=== PATIENT | male | born 1975 | race Caucasian/White ===

== ENCOUNTER 2023-03-25 10:35 | Outpatient (REF) | payer OTHER, SELFPAY ==
[2023-03-25 14:21] LABS: Alanine Aminotransferase 23 U/L (0-40); Albumin Level 4.3 g/dL (3.5-5.0); Alkaline Phosphatase 79 U/L (39-117); Anion Gap 11 (12-20); Aspartate Amino Transferase 19 U/L (5-37); Bilirubin Total 1.2 mg/dL (0.0-1.0); Blood Urea Nitrogen 14 mg/dL (9-16); Calcium 9.4 mg/dL (8.4-10.2); Carbon Dioxide 27 mmol/L (22-29); Chloride 103 mmol/L (96-108); Estimated Glomerular Filt Rate > 60; Glucose Random 199 mg/dL (60-115); Potassium 3.7 mmol/L (3.3-5.1); Sodium 137 mmol/L (135-145); Total Protein 6.9 g/dL (6.5-8.0)
[2023-03-28 14:59] LABS: Calcium (PTHI) 9.4 mg/dL (8.6-10.3); PTHI 20 pg/mL (16-77)
== END 2023-03-25 10:36 | disposition home or self-care (01) ==
LOC: HO.HHCL 10:35
PROVIDERS: Visit Provider Registered Nurse
DX: E11.65 Type 2 diabetes mellitus with hyperglycemia (principal); Z79.4 Long term (current) use of insulin; R79.89 Other specified abnormal findings of blood chemistry
CPT/HCPCS: 36415; 80053; 83970

== ENCOUNTER 2023-07-20 15:09 | Outpatient (REF) | payer MEDICAID, SELFPAY ==
[2023-07-23 00:54] LABS: TS Negative Control Passed; TS Panel A 1; TS Panel B 0; TS Positive Control Passed; TSpotTB Negative (Negative)
== END 2023-07-20 15:10 | disposition home or self-care (01) ==
LOC: HO.HHCL 15:09
PROVIDERS: Visit Provider Student in an Organized Health Care Education/Training Program
DX: Z11.1 Encounter for screening for respiratory tuberculosis (principal)
CPT/HCPCS: 36415; 86481

== ENCOUNTER 2023-09-02 08:49 | Outpatient (REF) | payer SELFPAY ==
[2023-09-02 11:48] LABS: Hematocrit 46.6 % (42.0-52.0); Hemoglobin 16.1 g/dl (14.0-18.0); Mean Corpuscular HGB Conc 34.5 g/dl (31.0-36.0); Mean Corpuscular Hemoglobin 30.3 pg (27.0-33.0); Mean Corpuscular Volume 87.6 fL (80.0-98.0); Mean Platelet Volume 10.6 fL (9.4-12.4); Platelet Count 242 X10*3/uL (160-400); Red Blood Count 5.32 X10*6/uL (4.60-5.80); Red Cell Distribution Width 11.9 % (11.0-16.0); White Blood Count 7.1 X10*3/uL (4.8-10.8)
[2023-09-02 11:59] LABS: Estimated Average Glucose 200 mg/dL; Hemoglobin A1c % 8.6 % (<6.0)
[2023-09-02 12:13] LABS: Alanine Aminotransferase 19 U/L (0-40); Albumin Level 4.5 g/dL (3.5-5.0); Alkaline Phosphatase 72 U/L (39-117); Anion Gap 14 (12-20); Aspartate Amino Transferase 16 U/L (5-37); Bilirubin Total 1.2 mg/dL (0.0-1.0); Blood Urea Nitrogen 14 mg/dL (9-16); Calcium 9.7 mg/dL (8.4-10.2); Carbon Dioxide 25 mmol/L (22-29); Chloride 102 mmol/L (96-108); Cholesterol 111 mg/dL (<200); Estimated Glomerular Filt Rate > 60; Glucose Random 249 mg/dL (60-115); HDL Cholesterol 42 mg/dL (>40); LDL Cholesterol Calculated 51 mg/dL (<100); Potassium 4.1 mmol/L (3.3-5.1); Sodium 137 mmol/L (135-145); Total Protein 7.2 g/dL (6.5-8.0); Triglycerides 93 mg/dL (<150)
[2023-09-02 12:16] LABS: Syphilis Screen Nonreactive (Nonreactive)
[2023-09-02 12:19] LABS: HBS Num1 0.32 mIU/mL (0-7.99); HBc Num1 0.11 S/CO (0.00-0.79); HBsAGNum1 0.36 S/CO (0.00-0.99); HIV AB/AG Nonreactive (Nonreactive); HIV Num 1 0.04 S/CO (0.00-0.99); Hepatitis B Core Antibody Nonreactive (Nonreactive); Hepatitis B Surface Antigen Negative (Negative); ~HepC Num1 0.14 S/CO (0.00-0.79); ~Hepatitis B Surface Antibody NONREACTIVE (Nonreactive); ~Hepatitis C Antibody Nonreactive (Nonreactive)
[2023-09-02 12:23] LABS: TSH reflex Free T4 1.09 uIU/mL (0.32-4.0); Vitamin D 25-OH Total 32.7 ng/mL (>30)
[2023-09-02 12:35] LABS: Folate 13.2 ng/mL (> or = 4.0)
[2023-09-02 12:42] LABS: Vitamin B12 530 pg/mL (200-900)
[2023-09-02 12:44] LABS: Creatinine Urine 145.78 mg/dL
[2023-09-02 14:56] LABS: CT PCR NOT DETECTED (Not Detect.); NG PCR NOT DETECTED (Not Detect.)
== END 2023-09-02 08:50 | disposition home or self-care (01) ==
LOC: HO.HHCL 08:49
PROVIDERS: Visit Provider Student in an Organized Health Care Education/Training Program
DX: Z00.00 Encounter for general adult medical examination without abnormal findings (principal); Z11.59 Encounter for screening for other viral diseases; Z20.2 Contact with and (suspected) exposure to infections with a predominantly sexual mode of transmission; Z72.89 Other problems related to lifestyle
CPT/HCPCS: 0353U; 36415; 80053; 80061; 82043; 82306; 82570; 82607; 82746; 83036; 84443; 85027; 86704; 86706; 86780; 86803; 87340; 87389

== ENCOUNTER 2023-09-19 18:39 | Emergency (ER) | payer OTHER, MEDICARE, SELFPAY ==
--- NOTE | 2023-09-19 18:41 | ECG_ITS ---
Test Reason : CHEST PAIN Blood Pressure : / mmHG Vent. Rate : 091 BPM Atrial Rate : 091 BPM P-R Int : 164 ms QRS Dur : 096 ms QT Int : 340 ms P-R-T Axes : 050 -13 028 degrees QTc Int : 418 ms Normal sinus rhythm Normal ECG When compared with ECG of 27-OCT-2019 21:01, No significant change was found Referred By: Trina Swain Electronically Signed By:NOAH GODINEZ
--- NOTE | 2023-09-19 19:48 | ED.GENADULT ---
HPI - General Adult General Chief complaint: Abdominal Pain Stated complaint: chest pain Time Seen by Provider: 09/20/23 01:38 Source: patient Mode of arrival: ambulatory Limitations: no limitations History of Present Illness HPI narrative: Patient comes to the emergency room complaining of abdominal cramping that radiated towards the left chest. Patient states it happened right after eating a bowl of cereal. At this time, patient is asymptomatic. Patient states that maybe he had a panic attack. Patient denies nausea vomiting or diarrhea, no shortness of breath. No chest pain at this time. Related Data Previous Rx's Medication Instructions Recorded omeprazole 40 mg capsule,delayed 40 mg PO DAILY #30 caps 09/20/23 release Allergies Allergy/AdvReac Type Severity Reaction Status Date / Time ibuprofen [From Motrin] Allergy Mild RASH Verified 09/19/23 19:48 losartan [Cozaar] Allergy Unknown Unknown Verified 09/19/23 19:48 Motrin Allergy Unknown Rash Uncoded 09/19/23 19:48 pork Allergy Unknown hives/rash Uncoded 10/29/19 00:00 Review of Systems Review of Systems: Constitutional : No Weight loss, No Fever, No Chills, No Night Sweats, No Fatigue, No Malaise ENT/Mouth : No Hearing loss, No Ear Pain, No Nasal Congestion, No Sinus Pain, No Hoarseness, No sore throat, No Rhinorrhea, No Swallowing Difficulty Eyes: No Eye Pain, No Swelling, No Redness, No Foreign Body, No Discharge, No Vision Changes Cardiovascular : No Chest Pain, No SOB, No Dyspnea on Exertion, No Orthopnea, No Edema, No Palpitations Respiratory : No Cough, No Sputum, No Wheezing, No Smoke Exposure, No Dyspnea Gastrointestinal : No Nausea, No Vomiting, No Diarrhea, No Constipation, complaining of abdominal cramping radiating towards the left side of the chest, no self resolved, patient asymptomatic at this time No Hematochezia, No Melena Genitourinary : no irregular bleeding, No Dysuria, No Urinary Frequency, No Hematuria, No Urinary Incontinence, No Urgency, No Flank Pain, No Urinary Flow Changes, No Hesitancy Musculoskeletal : No joint pain, No Myalgias, No Joint Swelling Skin : No Skin Lesions, No rash Neuro : No Weakness, No Numbness, No Paresthesias, No Loss of Consciousness, No Dizziness, No Headache Psych : No Anxiety/Panic, No Depression, No SI/HI/AH/VH, No Social Issues, Heme/Lymph: No Bruising, No Bleeding,No Lymphadenopathy Endocrine : No Polyuria, No Polydipsia, No Temperature Intolerance [facility] Past Medical History Onset Date is defined in the Problem List Problems that require an onset date and time if occurred within 24 hrs of arrival to the ED Aortic Dissection and Rupture; Neurologic impairment; Cardiopulmonary Arrest; Endotracheal Intubation; Insertion or Replacement of Mechanical Circulatory Assist Device Medical History Chronic, continuous use of opioids Dyslipidemia HTN (hypertension) Diabetes mellitus, type II Obesity Asthma Backache Anxiety Depression Pure hypercholesterolemia Social History Social History Smoked in Last 30 Days: No Use of substances other than those prescribed or required for medical reasons: No Advance Directives: No Advance Directives Information Provided: Yes Physical Exam ED Vital Signs: Vital Signs - 24 hr 09/19/23 19:49 09/19/23 23:41 09/20/23 01:20 Temperature 97.6 F 98.1 F 97.8 F Pulse Rate 79 63 57 Respiratory Rate 16 16 17 Blood Pressure 153/80 H 155/82 H 155/78 H Pulse Oximetry 98 98 99 Oxygen Delivery Method Room Air Room Air Room Air BMI result Body Mass Index 29.5 Const Other: Appearance: Alert. Oriented X3. No acute distress. Eyes: Pupils equal, round and reactive to light. ENT: Pharynx normal. Neck: Normal inspection. Neck supple. No lymph nodes noted. No crepitus CVS: Normal heart rate and rhythm. Pulses normal. Normal S1 and S2 Respiratory: No respiratory distress. Breath sounds normal. No Wheezing. No rales Abdomen: Soft and nontender. No rigidity. No distention. Skin: Skin warm and dry. Normal skin color. Normal skin turgor. Extremities: No lower extremity edema. No Lacerations. No Rash Neuro: Oriented X 3. No motor deficit. No sensory deficit. Moving all extremities. No slurred speech. CN 2 through 12 grossly intact Psych: calm, cooperative, normal affect Course Course Course Narrative: RME:?47 yo male here with epigastric pain/cramping with radiation to left chest directly after eating a bowel of cereal. 10 at onset, now 03/14. he began to feel anxious and reports numbness/tingling down his LUE which lasted approx 30 minutes before completely resolving. at present still reports epigastric cramping. Was seen at walk-in last week prescribed omeprazole. hx of anxiety, states this felt similar. plan for basic labs, trop, ekg Full HPI, ROS and PE to be performed by the primary ED provider. Medical Decision Making Medical Decision Making [facility] Narrative: -my interpretation of EKG: Normal sinus rhythm, heart rate 91, no ST segment depression or elevation, no T-wave inversion, QTC 418 -my interpretation of labs: Hematology and chemistry, blood glucose 290, patient known to be diabetic, LFTs troponin lipase within normal limits -patient likely had viral syndrome versus, anxiety versus ACS versus GERD -patient states he has an appointment pending with his PCP for GERD follow-up in 2 weeks Differential Diagnosis Differential Diagnoses: The differential diagnosis associated with the presentation includes (As above) Admission/Observation Consideration of admission/observation: Escalation of care including admission/observation considered (Given patient's history, admission was considered on arrival) Lab Data [facility] Lab Attestation statement: I reviewed the patient's lab results. 09/19/23 21:05 09/19/23 21:05 Labs: Lab Results 09/19/23 09/20/23 Range/Units 21:05 01:28 WBC 8.8 (4.8-10.8) X10*3/uL RBC 5.43 (4.60-5.80) X10*6/uL Hgb 16.1 (14.0-18.0) g/dl Hct 46.4 (42.0-52.0) % MCV 85.5 (80.0-98.0) fL MCH 29.7 (27.0-33.0) pg MCHC 34.7 (31.0-36.0) g/dl RDW 11.9 (11.0-16.0) % Plt Count 243 (160-400) X10*3/uL MPV 9.5 (9.4-12.4) fL Immature Gran % (Auto) 0.2 (0.0-0.4) % Neut % (Auto) 69.4 (45-73) % Lymph % (Auto) 19.7 L (20-40) % [place] % (Auto) 8.1 (2-11) % Eos % (Auto) 2.3 (0-4) % Baso % (Auto) 0.3 (0-2) % Lymph # (Auto) 1.7 (1.2-4.9) X10*3/uL [place] # (Auto) 0.7 (0.1-1.2) X10*3/uL Eos # (Auto) 0.2 (0.0-0.4) X10*3/uL Baso # (Auto) 0.0 (0.0-0.2) X10*3/uL Abs Immat Gran (auto) 0.02 (0.00-0.03) X10*3/uL Absolute Neuts (auto) 6.1 (2.0-8.3) x10*3/uL Absolute Nucleated RBC 0.000 (0.0-0.012) X10*3/uL Nucleated RBC % (auto) 0.0 (0.0-0.2) /100WBC Sodium 137 (135-145) mmol/L Potassium 4.0 (3.3-5.1) mmol/L Chloride 104 (96-108) mmol/L Carbon Dioxide 25 (22-29) mmol/L Anion Gap 12 (12-20) BUN 18 H (9-16) mg/dL Creatinine 1.40 (0.5-1.4) mg/dL Estim Creat Clear Calc 71.8 Estimated GFR 55 POC Glucose 160 H (60-115) mg/dL Random Glucose 290 H (60-115) mg/dL Calcium 9.8 (8.4-10.2) mg/dL Magnesium 1.8 (1.6-2.6) mg/dL Total Bilirubin 0.6 (0.0-1.0) mg/dL AST 13 (5-37) U/L ALT 18 (0-40) U/L Alkaline Phosphatase 95 (39-117) U/L Troponin I High Sens < 2.7 (<3.5-35.0) ng/L Total Protein 7.3 (6.5-8.0) g/dL Albumin 4.5 (3.5-5.0) g/dL Lipase 53 (8-78) U/L Independent Interpretation I performed an independent interpretation of an: EKG Critical Care Time Critical Care Time Critical Care Time: Yes Total Critical Care Time: 30 Attestation: I have personally provided critical care time. Time includes review of lab data, radiology results, discussion with consultants, and monitoring for potential decompensation. Intervention performed as documented. Discharge Plan Discharge Clinical Impression: Atypical chest pain, Abdominal cramping, Anxiety Patient Disposition: Home, Self-Care Instructions: Chest Pain (ED), Abdominal Pain (ED), Anxiety (ED) Additional Instructions: Please follow-up with your primary care physician tomorrow. If you have any worsening or new symptoms, please return to the emergency room or call 911 Prescriptions: New omeprazole 40 mg capsule,delayed release(DR/EC) 40 mg PO DAILY Qty: 30 0RF
[2023-09-19 19:49] VITALS: BP 153/80; PULSE 79; RESP 16; TEMP 36.4; O2SAT 98; BMI 29.5
[2023-09-19 21:11] LABS: MANUAL DIFF FLAG NO
[2023-09-19 21:14] LABS: Basophils Percent Auto 0.3 % (0-2); Eosinophils Absolute Auto 0.2 X10*3/uL (0.0-0.4); Eosinophils Percent Auto 2.3 % (0-4); Hematocrit 46.4 % (42.0-52.0); Hemoglobin 16.1 g/dl (14.0-18.0); Imm Gran Abs Auto 0.02 X10*3/uL (0.00-0.03); Imm Gran Pct Auto 0.2 % (0.0-0.4); Lymphocytes Absolute Auto 1.7 X10*3/uL (1.2-4.9); Lymphocytes Percent Auto 19.7 % (20-40); Mean Corpuscular HGB Conc 34.7 g/dl (31.0-36.0); Mean Corpuscular Hemoglobin 29.7 pg (27.0-33.0); Mean Corpuscular Volume 85.5 fL (80.0-98.0); Mean Platelet Volume 9.5 fL (9.4-12.4); Monocytes Absolute Auto 0.7 X10*3/uL (0.1-1.2); Monocytes Percent Auto 8.1 % (2-11); Neutrophils Absolute Auto 6.1 x10*3/uL (2.0-8.3); Neutrophils Percent Auto 69.4 % (45-73); Platelet Count 243 X10*3/uL (160-400); Red Blood Count 5.43 X10*6/uL (4.60-5.80); Red Cell Distribution Width 11.9 % (11.0-16.0); White Blood Count 8.8 X10*3/uL (4.8-10.8)
[2023-09-19 21:25] LABS: Alanine Aminotransferase 18 U/L (0-40); Albumin Level 4.5 g/dL (3.5-5.0); Alkaline Phosphatase 95 U/L (39-117); Anion Gap 12 (12-20); Aspartate Amino Transferase 13 U/L (5-37); Bilirubin Total 0.6 mg/dL (0.0-1.0); Blood Urea Nitrogen 18 mg/dL (9-16); Calcium 9.8 mg/dL (8.4-10.2); Carbon Dioxide 25 mmol/L (22-29); Chloride 104 mmol/L (96-108); Creatinine Clr Calc Pharmacy 71.8; Estimated Glomerular Filt Rate 55; Glucose Random 290 mg/dL (60-115); Lipase 53 U/L (8-78); Magnesium 1.8 mg/dL (1.6-2.6); Sodium 137 mmol/L (135-145); Total Protein 7.3 g/dL (6.5-8.0)
[2023-09-19 21:32] LABS: Troponin-I High Sensitivity < 2.7 ng/L (<3.5-35.0)
[2023-09-19 23:41] VITALS: BP 155/82; PULSE 63; RESP 16; TEMP 36.7; O2SAT 98
[2023-09-20 01:20] VITALS: BP 155/78; PULSE 57; RESP 17; TEMP 36.6; O2SAT 99
[2023-09-20 01:36] LABS: Glucose, Whole Blood 160 mg/dL (60-115)
--- NOTE | 2023-09-20 01:46 | ED_ITS ---
HPI - General Adult General Chief complaint: Abdominal Pain Stated complaint: chest pain Time Seen by Provider: 09/20/23 01:38 Source: patient Mode of arrival: ambulatory Limitations: no limitations Related Data Allergies Allergy/AdvReac Type Severity Reaction Status Date / Time ibuprofen [From Motrin] Allergy Mild RASH Verified 09/19/23 19:48 losartan [Cozaar] Allergy Unknown Unknown Verified 09/19/23 19:48 Motrin Allergy Unknown Rash Uncoded 09/19/23 19:48 pork Allergy Unknown hives/rash Uncoded 10/29/19 00:00 PMFSH Past Medical History Onset Date is defined in the Problem List Problems that require an onset date and time if occurred within 24 hrs of arrival to the ED Aortic Dissection and Rupture; Neurologic impairment; Cardiopulmonary Arrest; Endotracheal Intubation; Insertion or Replacement of Mechanical Circulatory Assist Device Medical History (Updated 10/18/22 @ 09:22 by MIRTA Viramontes) Chronic, continuous use of opioids Dyslipidemia HTN (hypertension) Diabetes mellitus, type II Obesity Asthma Backache Anxiety Depression Pure hypercholesterolemia Social History Social History Smoked in Last 30 Days: No Use of substances other than those prescribed or required for medical reasons: No Advance Directives: No Advance Directives Information Provided: Yes Physical Exam ED Vital Signs: Vital Signs - 24 hr 09/19/23 19:49 09/19/23 23:41 09/20/23 01:20 Temperature 97.6 F 98.1 F 97.8 F Pulse Rate 79 63 57 Respiratory Rate 16 16 17 Blood Pressure 153/80 H 155/82 H 155/78 H Pulse Oximetry 98 98 99 Oxygen Delivery Method Room Air Room Air Room Air BMI result Body Mass Index 29.5 Medical Decision Making Lab Data 09/19/23 21:05 09/19/23 21:05 Labs: Lab Results 09/19/23 09/20/23 Range/Units 21:05 01:28 WBC 8.8 (4.8-10.8) X10*3/uL RBC 5.43 (4.60-5.80) X10*6/uL Hgb 16.1 (14.0-18.0) g/dl Hct 46.4 (42.0-52.0) % MCV 85.5 (80.0-98.0) fL MCH 29.7 (27.0-33.0) pg MCHC 34.7 (31.0-36.0) g/dl RDW 11.9 (11.0-16.0) % Plt Count 243 (160-400) X10*3/uL MPV 9.5 (9.4-12.4) fL Immature Gran % (Auto) 0.2 (0.0-0.4) % Neut % (Auto) 69.4 (45-73) % Lymph % (Auto) 19.7 L (20-40) % [place] % (Auto) 8.1 (2-11) % Eos % (Auto) 2.3 (0-4) % Baso % (Auto) 0.3 (0-2) % Lymph # (Auto) 1.7 (1.2-4.9) X10*3/uL [place] # (Auto) 0.7 (0.1-1.2) X10*3/uL Eos # (Auto) 0.2 (0.0-0.4) X10*3/uL Baso # (Auto) 0.0 (0.0-0.2) X10*3/uL Abs Immat Gran (auto) 0.02 (0.00-0.03) X10*3/uL Absolute Neuts (auto) 6.1 (2.0-8.3) x10*3/uL Absolute Nucleated RBC 0.000 (0.0-0.012) X10*3/uL Nucleated RBC % (auto) 0.0 (0.0-0.2) /100WBC Sodium 137 (135-145) mmol/L Potassium 4.0 (3.3-5.1) mmol/L Chloride 104 (96-108) mmol/L Carbon Dioxide 25 (22-29) mmol/L Anion Gap 12 (12-20) BUN 18 H (9-16) mg/dL Creatinine 1.40 (0.5-1.4) mg/dL Estim Creat Clear Calc 71.8 Estimated GFR 55 POC Glucose 160 H (60-115) mg/dL Random Glucose 290 H (60-115) mg/dL Calcium 9.8 (8.4-10.2) mg/dL Magnesium 1.8 (1.6-2.6) mg/dL Total Bilirubin 0.6 (0.0-1.0) mg/dL AST 13 (5-37) U/L ALT 18 (0-40) U/L Alkaline Phosphatase 95 (39-117) U/L Troponin I High Sens < 2.7 (<3.5-35.0) ng/L Total Protein 7.3 (6.5-8.0) g/dL Albumin 4.5 (3.5-5.0) g/dL Lipase 53 (8-78) U/L
[2023-09-20 02:22] LABS: Troponin-I High Sensitivity < 2.7 ng/L (<3.5-35.0)
== END 2023-09-20 02:05 | disposition home or self-care (01) ==
PROVIDERS: Physician Assistant Medical; Emergency Provider Emergency Medicine
DX: R07.89 Other chest pain (principal); R10.9 Unspecified abdominal pain; F41.9 Anxiety disorder, unspecified; E11.9 Type 2 diabetes mellitus without complications; I10 Essential (primary) hypertension; E78.00 Pure hypercholesterolemia, unspecified
CPT/HCPCS: 36415; 80053; 82947; 83690; 83735; 84484; 85025; 93005; 99283; 99285

== ENCOUNTER → 2023-09-19 18:41 | Outpatient (BNV) | payer OTHER, MEDICARE, SELFPAY | PROVIDERS: Emergency Provider Emergency Medicine; Visit Provider Internal Medicine | DX: R07.9 Chest pain, unspecified (principal) | CPT/HCPCS: 93010 ==

== ENCOUNTER 2023-10-19 07:19 | Outpatient (REF) | payer MEDICARE, SELFPAY ==
--- NOTE | ~2023-10-19 | US_ITS ---
EXAMINATION: US ABDOMEN COMPLETE CLINICAL INFORMATION: Epigastric/abdominal pain. COMPARISON: CT abdomen and pelvis 03/22/2018. Renal ultrasound 03/04/2016. TECHNIQUE: Real-time imaging of the abdominal viscera. Limited visualization due to bowel gas. FINDINGS: PANCREAS: Poorly visualized. ABDOMINAL AORTA: Limited visualization. INFERIOR VENA CAVA: Visualized portions are normal. LIVER: Increased hepatic parenchymal heterogeneity and echogenicity could be associated with hepatocellular disease/hepatic steatosis and substantially limits visualization. Correlation with liver function tests and clinical exam recommended to determine further management. GALLBLADDER: No gallstones. No gallbladder wall thickening. COMMON BILE DUCT: Normal in caliber measuring 0.4 cm in diameter. RIGHT KIDNEY: No hydronephrosis. No renal calculi. Limited visualization. The kidney measures 9.1 cm in maximum dimension. LEFT KIDNEY: No hydronephrosis. No renal calculi. Limited visualization. The kidney measures 12.9 cm in maximum dimension. SPLEEN: Borderline enlarged. The spleen measures 12.2 cm in maximum dimension. FREE FLUID: None. US/US abdomen complete IMPRESSION: 1. Increased hepatic parenchymal heterogeneity and echogenicity could be associated with hepatocellular disease/hepatic steatosis and substantially limits visualization. Correlation with liver function tests and clinical exam recommended to determine further management. 2. Borderline splenomegaly.
== END 2023-10-19 07:20 | disposition home or self-care (01) ==
LOC: HO.US 07:19
PROVIDERS: PCP Student in an Organized Health Care Education/Training Program; Visit Provider Student in an Organized Health Care Education/Training Program
DX: R10.13 Epigastric pain (principal)
CPT/HCPCS: 76700

== ENCOUNTER 2023-12-27 11:34 | Outpatient (REF) | payer OTHER, MEDICARE, MEDICAID, SELFPAY ==
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
== END 2023-12-27 11:35 | disposition home or self-care (01) ==
LOC: HO.HHCX 11:34
PROVIDERS: Visit Provider Internal Medicine
DX: M54.6 Pain in thoracic spine (principal)
CPT/HCPCS: 72070

== ENCOUNTER 2024-01-24 09:05 | Emergency (ER) | payer MEDICARE, MEDICAID, SELFPAY ==
--- NOTE | ~2024-01-24 | XR_ITS ---
EXAMINATION: XR KNEE, RIGHT CLINICAL INFORMATION: Worsening pain following fall/injury on Tuesday. COMPARISON: None available. TECHNIQUE: Four views of the right knee. FINDINGS: Large prepatellar effusion but no definite fracture or dislocation. Alignment is maintained. Patellar spurring. XR/XR knee RT 4V IMPRESSION: Large suprapatellar effusion.
--- NOTE | 2024-01-24 09:18 | PC.NURSE ---
Called for triage but currently at Xray.
[2024-01-24 09:25] VITALS: BP 142/63; PULSE 79; RESP 16; TEMP 37; O2SAT 99; BMI 29.2
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
--- OUTSIDE RECORDS SUMMARY | 2024-01-24 10:30 | XMS_ITS | Continuity of Care Document ---
Author Organization [facility] Address [address] [place] [address]- Care Team Providers Care Green Pipefitter Name Role Phone Matty ZIMMERMAN, Soco Dyson Primary Care Physician [phone] Encounter [facility] [place] Date(s): 05/05/21 - 07/24/21 [facility] [address] [place] [address]- Attending Physician: Juan J Luz MD Admitting Physician: Juan J Luz MD Referring Physician: Josué Yen NP Allergies, Adverse Reactions, Alerts Substance Reaction Severity Status Cozaar Active Motrin O/E - lip swelling Active Medications amLODIPine 5 mg oral tablet Refills 0, Maintenance, 07/16/21 7:53:00 EST, Partial fill upon patient request if the prescriptionis for a schedule II opioid drug. Start Date: 07/16/21 Status: Ordered atorvastatin 20 mg oral tablet 0 Refills, Maintenance, 07/16/21 7:53:00 EST, Partial fill upon patient request if the prescriptionis for a schedule II opioid drug. Start Date: 07/16/21 Status: Ordered Freestyle Anthony Monitor See Instructions, # 1 each, Refills 0, Tot. Refills 0, Maintenance, please use to scan your sensor 3-4x per day E11.9, 07/16/21 8:04:00 EST, FREESTYLE ANTHONY 2, Supply Start Date: 07/16/21 Status: Ordered Freestyle Anthony Monitor See Instructions, # 1 each, Refills 0, Tot. Refills 0, Maintenance, please use to scan sensor 3-4 times per day to check BG E11.9, 07/16/21 8:13:00 EST, FREESTYLE ANTHONY 2, Supply Start Date: 07/16/21 Status: Ordered Freestyle Anthony Sensor See Instructions, # 2 each, Refills 6, Tot. Refills 6, Maintenance, use as directed for Type 2 Diabetes Mellitus, replace sesnor every 14 days. check BG 3- 4 time s per day, 07/16/21 8:04:00 EST, FREESTYLE ANTHONY 2, Supply Start Date: 07/16/21 Stop Date: 02/11/22 Status: Ordered Freestyle Anthony Sensor See Instructions, # 2 each, Refills 6, Tot. Refills 6, Maintenance, use as directed for Type 2 Diabetes Mellitus, replace sesnor every 14 days. 3-4 times per day to check BG E11.9, 07/16/21 8:12:00 EST, FREESTYLE ANTHONY 2, Supply Start Date: 07/16/21 Stop Date: 02/11/22 Status: Ordered FREESTYLE JOSUE PRECISION TEST STRIPS FREESTYLE JOSUE PRECISION TEST STRIPS, See Instructions, # 200 each, Refills 6, Tot. Refills 6, Maintenance, PLEASE USE TO CHECK BG 3-4 TIMES PER DAY e11.9, 07/17/21 13:08:00 EST, Supply Start Date: 07/17/21 Status: Ordered Jardiance 25 mg oral tablet 0 Refills, Maintenance, 07/16/21 7:53:00 EST, Partial fill upon patient request if the prescriptionis for a schedule II opioid drug. Start Date: 07/16/21 Status: Ordered Lantus Solostar Pen 100 units/mL subcutaneous solution 0 Refills, Maintenance, 07/16/21 7:55:00 EST, Partial fill upon patient request if the prescriptionis for a schedule II opioid drug. Start Date: 07/16/21 Status: Ordered methimazole 5 mg oral tablet Refills 0, Maintenance, 07/16/21 7:54:00 EST, Partial fill upon patient request if the prescriptionis for a schedule II opioid drug. Start Date: 07/16/21 Status: Ordered NovoLOG FlexPen 100 units/mL subcutaneous solution 0 Refills, Maintenance, 07/16/21 7:55:00 EST, Partial fill upon patient request if the prescriptionis for a schedule II opioid drug. Start Date: 07/16/21 Status: Ordered oxyCODONE 5 mg oral tablet Refills 0, Tot. Refills 0, Maintenance, 07/16/21 7:54:00 EST, Partial fill upon patient request if the prescription is for a schedule II opioid drug. Start Date: 07/16/21 Status: Ordered
--- OUTSIDE RECORDS SUMMARY | 2024-01-24 10:30 | XMS_ITS | Continuity of Care Document ---
Author Organization [facility] Address [address] [place] [address]- Care Team Providers Care Telephone Assembler Name Role Phone Matty ZIMMERMAN, Soco Dyson Primary Care Physician Encounter [facility] [place] Date(s): 10/23/21 - 02/20/22 [facility] [address] [place] [address]- Attending Physician: Juan J Luz MD Admitting Physician: Juan J Luz MD Referring Physician: Soco Starr NP Allergies, Adverse Reactions, Alerts Substance Reaction [...]
--- OUTSIDE RECORDS SUMMARY | 2024-01-24 10:30 | XMS_ITS | Continuity of Care Document ---
Author Organization [facility] ter Address [address] [place] [address]- Care Team Providers Care Gradall Operator Name Role Phone Matty SALES SUPPORT SPECIALIST, Soco Dyson Primary Care Physician [phone] Encounter [facility] [place] Date(s): 04/23/22 - 04/23/[address] [address]- Encounter Diagnosis Chest pain(Final) - 04/23/22 Discharge Disposition: A-D/C Home Attending Physician: Mert Dennison MD Admitting Physician: Mert Dennison MD Referring Physician: Not on Staff, Referring MD Allergies, Adverse Reactions, Alerts Substance Reaction Severity [...] opioid drug. Start Date: 07/16/21 Status: Ordered FreeStyle Anthony 14 Day Sensor kit FreeStyle Anthony 14 Day Sensor kit, See Instructions, # 2 kit, 6 Refills, USE DIRECTED 3 TO 4 TIMES PER DAY. CHANGE EVERY 14 DAYS Start Date: 03/29/22 Status: Ordered Freestyle Anthony Monitor See Instructions, [...] opioid drug. Start Date: 07/16/21 Status: Ordered Results Radiology Reports * Exam Date Time Procedure Performing Provider Status 04/23/22 1:29 PM Chest 2 Views Frontal and Lat Evelyne Stearns; Auth (Verified) Notes: (Chest 2 Views Frontal and Lat) Reason For Exam: Chest Pain;Other: RESULT: Chest 2 Views Frontal and Lat Chest 2 Views Frontal and Lat Hx of Present Illness: pt states that I have problems breathing and I feel like my arm is numb, pt has been seeing PCP and state sthat he was getting evaluated for all of this but told by PCP to [facility] if it gets worse, states that he couldn't wait, has PCP appt at 1300; Reason: Other:; Chest Pain; Clinical Question(s): Other: COMPARISON: 12/11/2018 FINDINGS: LINES AND TUBES: None. LUNGS AND PLEURA: Clear lungs. Normal pulmonary vascularity. No pleural effusion. No pneumothorax. HEART, MEDIASTINUM AND ALISE: Heart is normal in size. Normal upper mediastinal and hilar contour. BONES AND SOFT TISSUES: No acute abnormality. IMPRESSION: No acute abnormality. WSN: [id number] Ordering Physician: Katy Desai Dictated By: Marika Johnson MD Dictated Date/Time: 04/23/22 1:32 pm Reviewed By: Markia Johnson MD Signed By: Marika Johnson MD Signed Date/Time: 04/23/22 1:32 pm Transcribed By: NELI Transcribed Date/Time: 04/23/22 1:31 pm Vital Signs Most recent to oldest [Reference Range]: 1 2 3 Height 173 cm (04/23/22 11:12 AM) Weight 90 kg (04/23/22 11:12 AM) Oxygen Saturation [94-100 %] 100 % (04/23/22 4:22 PM) 99 % (04/23/22 2:16 PM) 97 % (04/23/22 12:08 PM) Pulse Rate [55-90 bpm] 72 bpm (04/23/22 4:22 PM) 76 bpm (04/23/22 2:16 PM) 90 bpm (04/23/22 12:08 PM) Blood Pressure [90-138/55-84 mm Hg] 133/73mm Hg (04/23/22 4:22 PM) 132/84mm Hg (04/23/22 2:16 PM) 132/81mm Hg (04/23/22 12:08 PM) Respiratory Rate [16-30 br/min] 18 br/min (04/23/22 12:08 PM) Temperature [96.8-100.4 DegF] 97.4 DegF (04/23/22 4:22 PM) 97.6 DegF (04/23/22 2:16 PM) 98.6 DegF (04/23/22 12:08 PM) Mode of Delivery (Oxygen) Room air (04/23/22 4:22 PM) Room air (04/23/22 2:16 PM) Room air (04/23/22 12:08 PM) Blood pressure sites Arm, left (04/23/22 4:22 PM) Arm, left (04/23/22 2:16 PM) Arm, right (04/23/22 12:08 PM) Temperature Route Temporal (04/23/22 4:22 PM) Temporal (04/23/22 2:16 PM) Oral (04/23/22 12:08 PM) Dry Weight 90 kg (04/23/22 11:12 AM) Social History Social History Type Response Smoking Status Never (less than 100 in lifetime) entered on: 04/23/22 Sex
--- OUTSIDE RECORDS SUMMARY | 2024-01-24 10:30 | XMS_ITS | Continuity of Care Document ---
Author Organization [facility] Address [address] [place] [address]- Care Team Providers Care Garnetter Name Role Phone Matty ZIMMERMAN, Soco Dyson Primary Care Physician [place] [facility] [place] [facility] [place](s): 04/20/23 - 05/20/23 [facility] [address] [place] [address]- Attending Physician: Kevin Sandoval Admitting Physician: Kevin Sandoval Referring Physician: AdmtrKevin Allergies, Adverse Reactions, Alerts Substance Reaction Severity Status shellfish Active Cozaar Active Motrin O/E - lip swelling Active Pork Active Medications amLODIPine 5 mg oral tablet [...] See Instructions, # 2 kit, 6 Refills, Maintenance, USE DIRECTED THREE OR FOUR TIMES DAILY. CHANGE EVERY 14 DAYS, 10/11/22 9:59:00 EST, 172, cm, 10/06/22 8:04:00 EST, Height, 89, kg, 04/26/22 6:34:00 EDT, Dry Weight Start Date: 10/11/22 Status: Ordered FreeStyle Anthony 14 Day Sensor [...] opioid drug. Start Date: 07/16/21 Status: Ordered Levemir FlexPen 100 units/mL subcutaneous solution = 55 units, Subcutaneous Infusion, Daily at bedtime, Take 55 units daily at bedtime e11.9, # 45 mL,3 Refills, Maintenance, 04/20/23 11:44:00 EDT, [facility], Partial fill upon patient request if the prescription is for a schedule... Start Date: 04/20/23 Status: Ordered methimazole 5 mg oral tablet [...] opioid drug. Start Date: 07/16/21 Status: Ordered Problem List Condition Confirmation Course Effective Dates Status Health St atus Informant Obese class I Confirmed Active Social History Social History Type Response Smoking Status Never (less than 100 in lifetime) entered on: 04/23/22 Sex Laboratory * Event Display: Non BH Lab Results Authored Date: * Event Display: Non BH Lab Results Authored Date: * Event Display: Non BH Lab Results Authored Date: Patient Care team information Care Team Personnel Name: Tegan Shields Position: [facility] TA Member Role: Lifetime Consulting Physician Name: Soco Starr NP Position: [facility] Outreach Member Role: PCP Address: Address: [address] [place] [address]- Care Team Related Persons Name: LEE CAMPOS Address: [address] [address]
--- OUTSIDE RECORDS SUMMARY | 2024-01-24 10:30 | XMS_ITS | Continuity of Care Document ---
Author Organization [facility] Address [address] [place] [address]- Care Team Providers Care Block Machine Operator Name Role Phone Matty ZIMMERMAN, Soco Dyson Primary Care Physician Encounter [facility] [place] Date(s): 04/25/22 - 04/26/[address] [address]- Discharge Disposition: A-D/C Home Attending Physician: Raj Miller MD Admitting Physician: Raj Miller MD Referring Physician: Not on Staff, Referring MD Allergies, Adverse Reactions, Alerts Substance Reaction Severity Status shellfish Active Cozaar Active Pork Active Motrin O/E - lip swelling Active [...] opioid drug. Start Date: 07/16/21 Status: Ordered cephalexin monohydrate 500 mg oral capsule 1 capsule = 500 mg, By Mouth, 4 times a day, for 5 days, # 20 capsule, 0 Refills, Acute 05/01/22 6:16:00 EDT, 04/26/22 6:16:00 EDT, Capsule, [facility], Partial fill upon patient request if the prescription is for a schedule II opi... Start Date: 04/26/22 Stop Date: 05/01/22 Status: Ordered FreeStyle Anthony 14 Day Sensor [...] Date: 07/16/21 Status: Ordered Problem List Condition Effective Dates Status Health Status Inform ant Obese class I(Confirmed) Active Results Orders for Microbiology Reports Name Date Urine Culture (URINE CULTURE) 04/26/22 Microbiology Reports TEST:Urine Culture STATUS:Unauthenticated BODY SITE: SOURCE:URINE COLLECTED DATE/TIME:04/26/22 12:46 AM Urine Culture SPECIMEN DESCRIPTION : URINE SPECIAL REQUESTS : NONE Reflexed from [id number] REPORT STATUS : PRELIMINARY REPORT Vital Signs Most recent to oldest [Reference Range]: 1 2 3 Height 172 cm (04/26/22 6:34 AM) 172 cm (04/26/22 1:29 AM) 172 cm (04/25/22 8:17 PM) Weight 89 kg (04/26/22 6:34 AM) 89 kg (04/26/22 1:29 AM) 89 kg (04/25/22 8:17 PM) Oxygen Saturation [94-100 %] 99 % (04/26/22 6:34 AM) 100 % (04/26/22 1:29 AM) 98 % (04/25/22 11:21 PM) Pulse Rate [55-90 bpm] 66 bpm (04/26/22 6:34 AM) 65 bpm (04/26/22 1:29 AM) 67 bpm (04/25/22 11:21 PM) Body Mass Index [18.5-24.99] 30.08 *>HHI* (04/26/22 6:34 AM) 30.08 *>HHI* (04/26/22 1:29 AM) Blood Pressure [90-138/55-84 mm Hg] 137/70mm Hg (04/26/22 6:34 AM) 132/67mm Hg (04/26/22 1:29 AM) 136/75mm Hg (04/25/22 11:21 PM) Respiratory Rate [16-30 br/min] 16 br/min (04/26/22 6:34 AM) 16 br/min (04/26/22 1:29 AM) 16 br/min (04/25/22 9:32 PM) Temperature [96.8-100.4 DegF] 98.6 DegF (04/26/22 6:34 AM) 98.3 DegF (04/25/22 11:21 PM) 98.4 DegF (04/25/22 9:32 PM) Mode of Delivery (Oxygen) Room air (04/26/22 6:34 AM) Room air (04/26/22 1:29 AM) Room air (04/25/22 9:32 PM) Blood pressure sites Arm, left (04/26/22 6:34 AM) Arm, left (04/26/22 1:29 AM) Arm, left (04/25/22 11:21 PM) Temperature Route Oral (04/26/22 6:34 AM) Oral (04/25/22 11:21 PM) Oral (04/25/22 9:32 PM) Dry Weight 89 kg (04/26/22 6:34 AM) 89 kg (04/26/22 1:29 AM) 89 kg (04/25/22 8:17 PM) Social History Social History Type Response Smoking Status Never (less than 100 in lifetime) entered on: 04/23/22 Sex
--- OUTSIDE RECORDS SUMMARY | 2024-01-24 10:30 | XMS_ITS | Continuity of Care Document ---
Author Organization [facility] Address [address] [place] [address]- Care Team Providers Care Offshore Wind Turbine Technician Name Role Phone Soco Starr NP Primary Care Physician Encounter [facility] [place] Date(s): 10/06/22 - 11/05/22 [facility] [address] [place] [address]- Attending Physician: Kevin Sandoavl Admitting Physician: AdmtrKevin Referring Physician: Admtr, Ar8 Allergies, Adverse Reactions, Alerts Substance Reaction Severity [...] 07/16/21 Stop Date: 02/11/22 Status: Ordered FREESTYLE OJSUE PRECISION TEST STRIPS FREESTYLE JOSUE PRECISION TEST [...] 100 in lifetime) entered on: 04/23/22 Sex Note * Event Display: Non BH Lab Results Authored Date: * Event Display: Non BH Lab Results Authored Date: * Event Display: Non BH Lab Results Authored Date: Patient Care team information Care Team Personnel Name: Soco Starr NP Position: [facility] Outreach Member Role: PCP Address: Address: [address] [place] [address], [place] [address]- Care Team Related Persons Name: LEE CAMPOS Address: home [address] [place] [address]
--- OUTSIDE RECORDS SUMMARY | 2024-01-24 10:30 | XMS_ITS | Continuity of Care Document ---
Author Organization [facility] Address [address] [place] [address]- Care Team Providers Care Wheat Inspector Name Role Phone Matty ZIMMERMAN, Soco Dyson Primary Care Physician [place] [facility] [place](s): 01/21/22 - 02/20/22 [facility] [address] [place] [id number] Attending Physician: AdmKevin adrian Admitting Physician: AdmtrKevin Referring Physician: Admtr, Ar8 [...]
--- OUTSIDE RECORDS SUMMARY | 2024-01-24 10:30 | XMS_ITS | Continuity of Care Document ---
Author Organization [facility] Address [address] [place] [address]- Care Team Providers Care Citrus Peeler Name Role Phone Matty ZIMMERMAN, Soco Dyson Primary Care Physician Encounter [facility] [place] Date(s): 12/21/23 - 01/20/24 [facility] [address] [place] [address]- Allergies, Adverse Reactions, Alerts Substance Reaction Severity [...] opioid drug. Start Date: 07/16/21 Status: Ordered Baqsimi Two Pack 3 mg nasal powder = 3 mg, Naris, Right, Once, for if patient is unconscious, to be given by a family member. if used please call 911 after administering, # 1 each, 2 Refills, Soft Stop, 12/20/23 10:23:00 EDT, [facility], Partial fill upon patient re... Start Date: 12/20/23 Status: Ordered Freestyle Lancets See Instructions, # 200 each, Refills 11, Tot. Refills 11, Maintenance, use as directed for diabetes care 4 times per day, 12/20/23 10:30:00 EDT, Supply, 172, cm, 12/20/23 10:02:00 EDT, Height, 89, kg, 04/26/22 6:34:00 EDT, Dry Weight Start Date: 4/16/24 Status: Ordered FreeStyle Anthony 14 Day Sensor [...] 07/16/21 Stop Date: 02/11/22 Status: Ordered Freestyle Lite Monitor See Instructions, # 1 each, Refills 0, Tot. Refills 0, Maintenance, use as directed for diabetes care 4 times per day, 12/20/23 10:30:00 EDT, Supply, 172, cm, 12/20/23 10:02:00 EDT, Height, 89, kg, 04/26/22 6:34:00 EDT, Dry Weight Start Date: 12/20/23 Status: Ordered Freestyle Lite Test Strips See Instructions, # 200 each, Refills 11, Tot. Refills 11, Maintenance, use as directed for diabetes care 4 times per day, 12/20/23 10:30:00 EDT, Supply, 172, cm, 12/20/23 10:02:00 EDT, Height, 89, kg, 04/26/22 6:34:00 EDT, Dry Weight Start Date: 12/20/23 Status: Ordered FREESTYLE JOSUE PRECISION TEST STRIPS FREESTYLE JOSUE PRECISION TEST STRIPS, See Instructions, # 200 each, Refills 6, Tot. Refills 6, Maintenance, PLEASE USE TO CHECK BG 3-4 TIMES PER DAY e11.9, 07/17/21 13:08:00 EST, Supply Start Date: 07/17/21 Status: Ordered glucose 4 gm oral tablet, chewable 4 tablet = 16 Gm, Chew, Once, PRN as needed for low blood sugar, may repeat in 15 to 20 minutes if blood sugar still < 70 mg/dL., # 50 tablet, 11 Refills, Soft Stop, 12/20/23 10:23:00 EDT, Chew Tablet, [facility], Partial fill upon... Start Date: 12/20/23 Status: Ordered Insulin Glargine Solostar Pen 100 units/mL subcutaneous solution See Instructions, Subcutaneous Infusion Daily as instructed 90 day supply. Give 9 units daily at night prior to bed., # 45 mL, 3 Refills, Maintenance, 12/20/23 10:46:00 EDT, [facility], Partial fill upon patient request if the pres... Start Date: 12/20/23 Status: Ordered Jardiance 25 mg oral tablet [...] 45 mL,3 Refills, Maintenance, 04/20/23 11:44:00 EDT, [facility], Partial fill upon patient request [...] 100 in lifetime) entered on: 04/23/22 Sex Patient Care team information Care Team Personnel Name: Soco Starr NP Position: S Outreach Member Role: PCP Address: Address: [address] [facility], [place] [address]- Care Team Related Persons Name: LEE CAMPOS Address: home [address] [place] [address]
--- OUTSIDE RECORDS SUMMARY | 2024-01-24 10:30 | XMS_ITS | Continuity of Care Document ---
Author Organization [facility] Address [address] [place] [address]- Care Team Providers Care Patent Chemist Name Role Phone Matty ZIMMERMAN, Soco Dyson Primary Care Physician Encounter [facility] [place] Date(s): 08/19/22 - 09/18/22 [facility] [address] [place] [id number] Allergies, Adverse Reactions, Alerts Substance Reaction Severity [...] Team Personnel Name: Soco Starr NP Position: [facility] Outreach Member Role: PCP Address: Address: [address] [place] [address], [place] [address]- Care Team Related Persons Name: LEE CAMPOS Address: home [address] [place] [address]
[2024-01-24] MEDS: oxyCODONE HCl Immed Release 5 MG TABLET PO (10:36)
[2024-01-24] MEDS: Ketorolac Tromethamine 30 MG/ML VIAL IM (10:37)
--- NOTE | 2024-01-24 10:44 | PC.NURSE ---
PT WAS MEDICATED CHARTED, PADMINI WRAP AND CRUTCHES HAVE BEEN GIVEN WITH GOOD DEMONSTRATION OF USE.
[2024-01-24 10:46] VITALS: BP 142/63; PULSE 79; RESP 16; TEMP 37; O2SAT 99
== END 2024-01-24 10:48 | disposition home or self-care (01) ==
PROVIDERS: Emergency Provider Emergency Medicine; PCP Student in an Organized Health Care Education/Training Program
DX: M25.561 Pain in right knee (principal); M25.461 Effusion, right knee; I10 Essential (primary) hypertension; E11.9 Type 2 diabetes mellitus without complications
CPT/HCPCS: 73564; 96372; 99283; 99284; J1885

== ENCOUNTER 2024-03-13 09:32 | Outpatient (REF) | payer MEDICARE, MEDICAID, SELFPAY ==
[2024-03-13 11:54] LABS: Alanine Aminotransferase 21 U/L (0-40); Albumin Level 4.5 g/dL (3.5-5.0); Alkaline Phosphatase 103 U/L (39-117); Anion Gap 11 (12-20); Aspartate Amino Transferase 15 U/L (5-37); Bilirubin Total 1.3 mg/dL (0.0-1.0); Blood Urea Nitrogen 15 mg/dL (9-16); Calcium 9.8 mg/dL (8.4-10.2); Carbon Dioxide 26 mmol/L (22-29); Chloride 105 mmol/L (96-108); Cholesterol 100 mg/dL (<200); Estimated Glomerular Filt Rate > 60; Glucose Random 270 mg/dL (60-115); HDL Cholesterol 41 mg/dL (>40); LDL Cholesterol Calculated 45 mg/dL (<100); Potassium 4.4 mmol/L (3.3-5.1); Sodium 138 mmol/L (135-145); Total Protein 7.2 g/dL (6.5-8.0); Triglycerides 70 mg/dL (<150)
[2024-03-13 11:56] LABS: Estimated Average Glucose 192 mg/dL; Hemoglobin A1c % 8.3 % (<6.0)
[2024-03-13 12:12] LABS: HBS Num1 0.51 mIU/mL (0-7.99); HBc Num1 0.11 S/CO (0.00-0.79); HBsAGNum1 0.34 S/CO (0.00-0.99); Hepatitis B Core Antibody Nonreactive (Nonreactive); Hepatitis B Surface Antigen Negative (Negative); ~Hepatitis B Surface Antibody NONREACTIVE (Nonreactive)
[2024-03-13 12:24] LABS: Folate 11.5 ng/mL (> or = 4.0); Vitamin B12 687 pg/mL (200-900)
== END 2024-03-13 09:33 | disposition home or self-care (01) ==
LOC: HO.HHCL 09:32
PROVIDERS: Visit Provider Student in an Organized Health Care Education/Training Program
DX: E11.9 Type 2 diabetes mellitus without complications (principal); Z11.59 Encounter for screening for other viral diseases
CPT/HCPCS: 36415; 80053; 80061; 82607; 82746; 83036; 86704; 86706; 87340

== ENCOUNTER 2024-07-11 16:19 | Outpatient (REF) | payer MEDICARE, MEDICAID, SELFPAY ==
[2024-07-11 16:54] LABS: Appearance Urine Clear; Color Urine Dark Yellow; Glucose Urine UA >=1000 mg/dL (Negative); Leukocyte Esterase Urine Negative (Negative); Nitrite Urine Negative (Negative); PH 5.5 (5.0-9.0); Specific Gravity - Urine >= 1.030 (1.005-1.025); UMIC TRIGGER UACC YES; Urine Blood Negative (Negative); Urine Ketones Trace mg/dL (Negative); Urine Protein Trace mg/dL (Neg-Trace)
[2024-07-11 17:01] LABS: Bacteria Urine None Seen (None Seen); Hyaline Casts Urine 0-2 /LPF (0-2); RBC Urine 0-2 /HPF (0-2); Squamous Epithelial Cell Urine 0-2 /HPF (0-2); WBC Urine 0-5 /HPF (0-5)
[2024-07-11 18:57] LABS: CT PCR NOT DETECTED (Not Detect.); NG PCR NOT DETECTED (Not Detect.)
== END 2024-07-11 16:20 | disposition home or self-care (01) ==
LOC: HO.HHCLNP 16:19
PROVIDERS: Visit Provider Student in an Organized Health Care Education/Training Program
DX: R30.0 Dysuria (principal); Z11.3 Encounter for screening for infections with a predominantly sexual mode of transmission
CPT/HCPCS: 81001; 87491; 87591

== ENCOUNTER 2024-08-08 15:25 | Outpatient (AMB) | payer MEDICARE, MEDICAID, SELFPAY ==
[2024-08-08 15:26] VITALS: BP 148/80; PULSE 102; O2SAT 98; BMI 31.4
--- NOTE | 2024-08-08 15:26 | MHC.OFFVIS ---
Vital Signs 08/08/24 15:26 Height 5 ft 8 in Weight 206 lb 5.643 oz BMI 31.4 BP 148/80 H Blood Pressure Location Rt brachial Position Sitting Pulse 102 H Pulse Source Pulse Oximeter Pulse Oximetry (%) 98 Oxygen Delivery Method Room Air Intake Visit Reasons: pre colonoscopy Intake Note: Joe presents in office today for a scheduled colo scrn. Routine/Initial CC; Relevant GI Sx as reported per pt? No significant sx or concerns at this time. PCP recommended colo per pt age. ? Recent hx of relevant surgeries? Prior hx of colo? None ? Relevant FMHx? Maternal grandmother - colon cancer. Supply Room Clerk Required: Yes Supply Room Clerk Services: Supply Room Clerk Present Allergies losartan [Cozaar] Allergy (Unknown, Verified 08/08/24 15:27) Unknown pork Allergy (Unknown, Uncoded 10/29/19 00:00) hives/rash HPI HPI pre colonoscopy: Details: 48 year old? male with past medical history of diabetes, GERD, hyperlipidemia, hypertension, history of spine surgery is here today for pre colonoscopy screening.? Patient was sent to us by his PCP.? This is his first colonoscopy screening.? Patient reports occasional acid reflux. States that he is unable to control his sugars very well. Currently is on metformin and short-acting insulin. Patient reports occasional reflux depending on what he eats. Was given script for omeprazole and was taking it for awhile currently is not taking anything, reports symptoms of acid reflux depending on what he eats.? Maternal grandmother diagnosed with CRC.? Denies history of difficulty with sedation or anesthesia in the past.? Negative for history of sleep apnea.? Denies any history of cardiac, renal, pulmonary, or hepatic disease.?? No history of infectious? diseases like hepatitis A, B, C, HIV or tuberculosis.? Patient is not on any anticoagulation [facility] Medical History (Updated 08/08/24 @ 15:48 by KI Becerril) GERD (gastroesophageal reflux disease) Chronic, continuous use of opioids Dyslipidemia HTN (hypertension) Diabetes mellitus, type II Obesity Asthma Backache Anxiety Depression Pure hypercholesterolemia Review of Systems Const Denies weight gain and Denies weight loss ENT Reports no additional complaints, Denies dysphagia and Denies odynophagia Card Reports no additional complaints Resp Reports no additional complaints GI Denies abdominal pain, Denies belching, Denies melena, Denies bloating, Denies change in bowel habits, Denies dysphagia, Denies excessive flatus, Denies dyspepsia, Reports heartburn (Occasional), Denies diarrhea, Denies loose stools, Denies nausea, Denies odynophagia and Denies vomiting Reports no additional complaints Musc Reports no additional complaints Neuro Reports no additional complaints Psych Reports no additional complaints Endo Reports no additional complaints Physical Exam Vital Signs: Last Vital Signs Pulse 102 H 08/08/24 15:26 BP 148/80 H 08/08/24 15:26 Pulse Ox 98 08/08/24 15:26 Oxygen Delivery Method Room Air 08/08/24 15:26 BMI result Body Mass Index 31.4 Const General: healthy appearing and no acute distress Nutritional Appearance: obese Orientation/consciousness: patient oriented x3 Resp Effort & Inspection: normal respiratory effort, able to speak in complete sentences, no tracheal deviation and symmetric chest movement Auscultation: clear to auscultation bilaterally Cardio Rate: regular rate GI Inspection: Yes normal to inspection, No distended and Yes obesity Palpation (GI): Soft to palpation, not firm, nontender and No hepatosplenomegaly present Auscultation: normal bowel sounds General: Yes no CVA tenderness Back/Spine/Pelvis Back: no CVA tenderness Skin General skin exam: elasticity normal, turgor normal and dry skin Neuro General: patient oriented x3 Psych Appearance: grossly normal Mental Status: mental status grossly normal Assessment & Plan Assessment & Plan (1) Screen for colon cancer: Code(s): Z12.11 - Encounter for screening for malignant neoplasm of colon (2) GERD (gastroesophageal reflux disease): Code(s): K21.9 - Gastro-esophageal reflux disease without esophagitis Category: Medical Qualifiers: Esophagitis presence: esophagitis presence not specified Qualified Code(s): K21.9 - Gastro-esophageal reflux disease without esophagitis Plan Patient denies any GI, cardiac or respiratory symptoms.? Denies any issues with anesthesia in the past.? Denies any history of sleep apnea.? No history infectious diseases in the past or present.? Not on any anticoagulation therapy.? Family history of CRC Patient denies melena, hematochezia, unintentional weight loss or ribbon like stools.? Discussed at length the pre-procedure,? prep, diet & medications as well as what to expect prior, during and after the procedure.?? Patient is experiencing epigastric pain and acid reflux. He did take omeprazole, however lately he has not been taking it. Depending on what he eats he has these symptoms. Patient is diabetic and his blood sugars are not well controlled. Will send him for upper endoscopy to evaluate for gastritis, duodenitis, esophagitis, Barretts, H pylori. Stressed the importance of good bowel prep.? Recommended the use of Vaseline or Calmoseptine OTC & baby wipes with bowel movements to promote comfort.? ?Patient verbalizes understanding and agrees to plan of care.? He was given the opportunity to ask questions and all questions answered.? We will see him after the procedure.? Coding Level of Care Code New Pt Level 3 (66652) Diagnoses Screen for colon cancer Z12.11 Gastroesophageal reflux disease, unspecified whether esophagitis present K21.9 Esophagitis presence: esophagitis presence not specified Time Spent (min) 40 Comment 30 minutes spent with patient and additional 10 minutes spent reviewing his records
== END 2024-08-08 16:05 | disposition home or self-care (01) ==
PROVIDERS: PCP Student in an Organized Health Care Education/Training Program; Visit Provider Nurse Practitioner Family
DX: K21.9 Gastro-esophageal reflux disease without esophagitis (principal); Z12.11 Encounter for screening for malignant neoplasm of colon
CPT/HCPCS: 99203

== ENCOUNTER → 2024-08-08 15:25 | Outpatient (BNVA) | payer MEDICARE, MEDICAID, SELFPAY | PROVIDERS: PCP Student in an Organized Health Care Education/Training Program; Visit Provider Nurse Practitioner Family | DX: Z12.11 Encounter for screening for malignant neoplasm of colon (principal); K21.9 Gastro-esophageal reflux disease without esophagitis | CPT/HCPCS: 99202 ==

== ENCOUNTER 2025-01-08 06:47 | Day surgery (SDC) | payer MEDICARE, MEDICAID, SELFPAY ==
[2025-01-03 13:51] VITALS: BMI 31.3
--- OUTSIDE RECORDS SUMMARY | 2025-01-07 08:53 | XMS_ITS ---
Author Name [facility] Organization Unknown Encounters Encounter Type Encounter Reason Primary Diagnosis Location Date Ambulatory Contact with and (suspected) exposure to covid-19 [id number] 03/12/2022 Ambulatory Contact with and (suspected) exposure to covid-19 [facility] 10/11/2021 Ambulatory Contact with and (suspected) exposure to covid-19 [facility] 07/08/2021 Care Team Organization Name Specialty Phone Email Start Date End Da te [facility] 03/12/2022 03/12/2022 [facility] 03/12/2022
--- OUTSIDE RECORDS SUMMARY | 2025-01-07 08:53 | XMS_ITS | Encounter Summary ---
Author Organization [employer] Address [address] [place] [address] [address] [place] [address] Care Team Providers Care Dental Biller Name Role Phone Katya Esteves Primary Care Provider [phone] Juany Escobar MD Primary Care Pro vider Encounter Details Date Type Department Care Team (Late st Contact Info) Description 08/23/2022 Orders Only [facility] [address] [place], [place] [id number] Mayda Carrero LPN Social History Tobacco Use Types Packs/Day Years Used Date Smoking Tobacco: Never Assessed Sex and Gender Information Value Date Recorded Sex Assigned at Male 07/05/2022 10:16 AM EDT Legal Sex Male 10:16 AM EDT Gender Identity Male 07/05/2022 10:16 AM EDT Sexual Orientation Straight 09/28/2023 3: 04 PM EST documented as of this encounter Plan of Treatment Not on file documented as of this encounter Visit Diagnoses Not on filedocumented in this encounter Care Teams Dental Biller Relationship Specialty Start Date End Date Katya Esteves FNP PCP - General Family Medicine 08/06/21 03/24/23 Juany Escobar MD [address] [place] [address] PCP - General Internal Medicine 03/25/23 documented as of this encounter
--- OUTSIDE RECORDS SUMMARY | 2025-01-07 08:53 | XMS_ITS | Encounter Summary ---
Author Organization [employer] Address [address] [facility] 7t [place] [address] Care Team Providers Care Lathe Operator Name Role Phone Juany Escobar MD Primary Care Pro vider Reason for Visit * Reason Comments Med Refill Encounter Details Date Type Department Care Team ([facility] st Contact Info) Description 09/17/2024 Refill [facility] [address] [place] [address] Juany Escobar MD [address] [place] [address] Social History Tobacco Use Types Packs/Day Years Used Date Smoking Tobacco: Never Passive Smoke Exposure: Never Smokeless Tobacco: Never Alcohol Use Standard Drinks/Week Comments Never 0 (1 standard drink = 0.6 oz pur e alcohol) Depression Answer Date Recorded Patient Health Questionnaire-9 Score 14 04/03/2024 Patient Health Questionnaire-9 Score 14 04/03/2024 Last PHQ-9: Questionnaire Data Not on file 0 04/03/2024 Housing Stability Answer Date Recorded What is your housing situation today? I have foster cxo 06/21/[address] you li ve. Do you have problems with any of the following? None of the above 06/21/2023 Food Insecurity Answer Date Recorded Within the past 12 months, y ou worried that your food would run out before you got money to buy more: Never True 06/21/2023 Within the past 12 months,th e food you bought just didn't last and you didn't have enough money to get more: Never True Transportation Answer Date Recorded In the past 12 months, has l ack of transportation kept you from medical appts, meetings, work or from getting things needed for daily living? No 06/21/2023 Utilities Answer Date Recorded In the past 12 months, has t he electric, gas, oil or water company threatened to shut off services in your home? No 06/21/2023 Depression Answer Date Recorded Patient Health Questionnaire-2 Score 3 04/03/2024 Sex and Gender Information Value Date Recorded Sex Assigned at Male 07/05/2022 10:16 AM EDT Legal Sex Male 10:16 AM EDT Gender Identity Male 07/05/2022 10:16 AM EDT Sexual Orientation Straight 09/28/2023 3: 04 PM EST documented as of this encounter Plan of Treatment Not on file documented as of this encounter Visit Diagnoses Not on filedocumented in this encounter Additional Health Concerns Assessment Noted Time PHQ-9 Depression Total Score: 14 024 2:51 PM EDT documented as of this encounter Care Teams Lathe Operator Relationship Specialty Start Date End Date Juany Escobar MD [address] [place] [id number] PCP - General Internal Medicine 03/25/23 documented as of this encounter
--- OUTSIDE RECORDS SUMMARY | 2025-01-07 08:53 | XMS_ITS | Encounter Summary ---
Author Organization [employer] Address [address] [facility] 7t [place] [address] Care Team Providers Care Sales Applications Engineer Name Role Phone Juany Escobar MD Primary Care Pro vider Reason for Visit * Reason Comments Med Refill Encounter Details Date Type Department Care Team ([facility] st Contact Info) Description 01/05/2025 Refill [facility] [address] [place] [address] Juany Escobar MD [address] [place] [address] Social History Tobacco Use Types Packs/Day Years Used Date Smoking Tobacco: Never Passive Smoke Exposure: Never Smokeless Tobacco: Never Alcohol Use Standard Drinks/Week Comments Never 0 (1 standard drink = 0.6 oz pur e alcohol) Depression Answer Date Recorded Patient Health Questionnaire-9 Score 0 12/04/2024 Patient Health Questionnaire-9 Score 0 12/04/2024 Last PHQ-9: Questionnaire Data Not on file 0 12/04/2024 Housing Stability Answer Date Recorded What is your housing situation today? I have foster cox 12/04/[address] you li ve. Do you have problems with any of the following? None of the above 12/04/2024 Food Insecurity Answer Date Recorded Within the past 12 months, y ou worried that your food would run out before you got money to buy more: Never True 12/04/2024 Within the past 12 months,th e food you bought just didn't last and you didn't have enough money to get more: Never True 09/2024 Transportation Answer Date Recorded In the past 12 months, has l ack of transportation kept you from medical appts, meetings, work or from getting things needed for daily living? No 12/04/2024 Utilities Answer Date Recorded In the past 12 months, has t he electric, gas, oil or water company threatened to shut off services in your home? No 12/04/2024 Depression Answer Date Recorded Patient Health Questionnaire-2 Score 0 12/04/2024 Internet Access Answer Date Recorded Internet Access Q1 Yes 12/04/2024 Internet Access Q2 Not on file 12/04/2024 Sex and Gender Information Value Date Recorded [...] Assessment Noted Time PHQ-9 Depression Total Score: 0 12/05/19 25 11:28 AM EDT documented as of this encounter Care Teams Sales Applications Engineer Relationship Specialty Start Date End Date Juany Escobar MD [address] [place] [id number] PCP - General Internal Medicine 03/25/23 documented as of this encounter
--- OUTSIDE RECORDS SUMMARY | 2025-01-07 08:53 | XMS_ITS | Clinical Summary ---
Author Organization [facility] Address [address] [place] [address] Care Team Providers Care Promotional Marketing Agent Name Role Phone Unknown Primary Care Provider [phone] Allergies Active Allergy Reactions Criticality Noted Date Comments Losartan Hives Medium 10/23/2020 Ibuprofen Hives Medium 10/23/2020 Medications amLODIPine (NORVASC) 5 MG tablet 1 Active SM Aspirin Adult Low Strength 81 MG EC tablet 1 Active atorvastatin (LIPITOR) 20 MG tablet 1 Active buPROPion (WELLBUTRIN XL) 150 MG 24 hr tablet 1 Active cyclobenzaprin e (FLEXERIL) 10 MG tablet Take 10 mg by mouth 3 times daily (every 8 hours) as needed. 0 Active fluticasone (FloNASE) 50 mcg/spray nasal spray 1 Active OneTouch Ultra test strip 1 Active hydrochlorothi azide (HYDRODIURIL) 50 MG tablet 1 Active hydrOXYzine HCl (ATARAX) 25 MG tablet 1 Active Lantus SoloStar 100 UNIT/ML pen injection INJECT 44 UNITS SUBCUTANEOUSLY AT BEDTIME 0 Active HumaLOG KWIKPEN 100 UNIT/ML injection INJECT 13-15 UNITS SUBCUTANEOUSLY FOUR TIMES DAILY 1 Active metFORMIN (GLUCOPHAGE) 500 MG tablet 1 Active oxyCODONE (ROXICODONE) 5 MG immediate release tablet Take 5 mg by mouth 2 (two) times a day as needed. for pain 1 Active omega-3 fatty acids (FISH OIL) 1000 MG Cap capsule 1 Active UltiCare Mini Pen [place] 31G X 6 MM Misc 1 Active Active Problems No known active problems Social History Tobacco Use Types Packs/Day Years Used Date Smoking Tobacco: Never Smokeless Tobacco: Never Sex and Gender Information Value Date Recorded Sex Assigned at Not on file Legal Sex Male 11:52 AM EDT Gender Identity Not on file Sexual Orientation Not on file Last Filed Vital Signs Vital Sign Reading Time Taken Comments Blood Pressure 131/85 12/02/2020 5:04 PM EDT Pulse 84 12/02/2020 5:04 PM EDT Temperature 36.9 ??C (98.4 ??F) 03/12/2022 1:28 PM ED T Respiratory Rate - - Oxygen Saturation 99% 12/02/2020 5:04 PM EDT Inhaled Oxygen Concentration - - Weight 94.3 kg (208 lb) 12/02/2020 5:04 PM EDT Height 172.7 cm (5' 8 ) 12/02/2020 5:04 PM EDT Body Mass Index 31.63 12/02/2020 5:04 PM EDT Plan of Treatment Health Maintenance Due Date Last Done Comments Hepatitis C Virus Screening 1977 HIV Screening 1990 DTaP/Tdap/Td Vaccines (1 - Tdap) 1996 Hepatitis B Vaccines (1 of 3 - 19+ 3-dose series) 1996 Colonoscopy 2022 COVID-19 Vaccine ( - 2023-2 5 season) 2024 Influenza Vaccine 04/05/2025 Pneumococcal Vaccine: Pediat bruce (0-5 Years) and At-Risk Patients (6 to 49 Years) Aged Out No longer eligible b ased on patient's age to complete this topic Insurance [facility] INSURANCE [facility] HMO Care Teams Promotional Marketing Agent Relationship Specialty Start Date End Date Unknown Unknow Provider Address PCP - General 10/23/20
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
--- OUTSIDE RECORDS SUMMARY | 2025-01-07 08:53 | XMS_ITS | Clinical Summary ---
Author Organization [facility] Address [address] [place] [address] Care Team Providers Care Wheel Press Operator Name Role Phone Unavailable Primary Care Provider Unavailabl e Social History Tobacco Use Types Packs/Day Years Used Date Smoking Tobacco: Never Assessed Sex and Gender Information Value Date Recorded Sex Assigned at Not on file Gender Identity Not on file Sexual Orientation Not on file Plan of Treatment Health Maintenance Due Date Last Done Comments Hepatitis B Vaccines (1 of 3 - 3-dose series) 1977 Hepatitis C Screening 1977 COVID-19 Vaccine (#1) 06/07/1978 Depression Screening 1989 Preventative Health Evaluation 12/07/1995 DTap / Tdap / Td (1 - Tdap) 1996 Colon Cancer Screening (Colonoscopy) 2022 Influenza Vaccine (#1) 2024 Pneumococcal Vaccine Aged Out No long er eligible based on patient's age to complete this topic RSV Ped < 20 months Aged Out No longe r eligible based on patient's age to complete this topic
--- OUTSIDE RECORDS SUMMARY | 2025-01-07 08:53 | XMS_ITS | Clinical Summary ---
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 If the results areinconsistent with clinical evidence, additional testing issuggested to confirm the result. Blood Venous blood specimen / Unknown 09/02/2023 8:55 AM EST 09/02/2023 11:35 AM EST Juany Gaines MD LAB BLOOD ORDERAB LES Final Result [facility] [address] [place] [address] [phone] from Last 3 Months or Most Recently Relevant to Health Maintenance Insurance [facility] MEDICARE MEDICARE Care Teams [place] Relationship Specialty Start Date End Date Juany Escobar MD [address] [phone] PCP - General Internal Medicine 03/25/23
--- OUTSIDE RECORDS SUMMARY | 2025-01-07 08:53 | XMS_ITS | Encounter Summary ---
Author Organization [employer] Address [address] [facility] [address] [place] [address] Care Team Providers Care Submarine Element Coordinator Name Role Phone Juany Escobar MD Primary Care Pro vider Reason for Visit * Reason Comments Med Refill Encounter Details Date Type Department Care Team ([facility] st Contact Info) Description 04/22/2023 Telephone [facility] [address] [place], [place] [phone] [facility] [address] [place] [address] Med Refill Social History Tobacco Use Types Packs/Day Years Used Date Smoking Tobacco: Never Smokeless Tobacco: Never Depression Answer Date Recorded Patient Health Questionnaire-9 Score 5 02/09/2023 Depression Answer Date Recorded Patient Health Questionnaire-2 Score 1 02/09/2023 Sex and Gender Information Value Date Recorded Sex Assigned at Male 07/05/2022 10:16 AM EDT Legal Sex Male 10:16 AM EDT Gender Identity Male 07/05/2022 10:16 AM EDT Sexual Orientation Straight 09/28/2023 3: 04 PM EST documented as of this encounter Miscellaneous Notes * Telephone Encounter - Kathy Elizondo RN - 04/26/2023 11:34 AM EDT T/C returned to pt re below message. Pt states that medication does not help him and he does not take it. Pt verbalized understanding and denied having any further questions or concerns at this time. * Telephone Encounter - Juany Gaines MD - 04/22/2023 7:28 PM EDT Needs to check first if pt taking not prescribed for last 8 months from here documented in this encounter Plan of Treatment Not on file documented as of this encounter Visit Diagnoses Diagnosis Other chronic pain documented in this encounter Additional Health Concerns Assessment Noted Time PHQ-9 Depression Total Score: 5 02/10/20 9:57 AM EDT documented as of this encounter Care Teams Submarine Element Coordinator Relationship Specialty Start Date End Date Juany Escobar MD [address] [place] [phone] PCP - General Internal Medicine 03/25/23 documented as of this encounter
--- OUTSIDE RECORDS SUMMARY | 2025-01-07 08:53 | XMS_ITS | Clinical Summary ---
Author Organization [facility] Facility Address [address] [place] [id number] Care Team Providers Care Rn Office Name Role Phone Silvestre Varghese [facility] Primary Care Provider Family History Medical History Relation Comments Kidney disease Child 1 daughter Lupus Diabetes Child 2 22 year old Hypertension Father Cancer Mother grandmother, aun ts Diabetes Mother Heart disease Mother grandmother Hypertension Mother Stroke Mother grandfather Relation Status Comments Child 1 Child 2 Father Alive Mother Alive Social History Tobacco Use Types Packs/Day Years Used Date Smoking Tobacco: Never Alcohol Use Standard Drinks/Week Comments No 0 (1 standard drink = 0.6 oz pur e alcohol) Sex and Gender Information Value Date Recorded Sex Assigned at Not on file Legal Sex Male 4:37 PM EST Gender Identity Not on file Sexual Orientation Not on file Last Filed Vital Signs Vital Sign Reading Time Taken Comments Blood Pressure 122/65 04/25/2018 12:00 PM EDT Pulse 74 04/25/2018 12:00 PM EDT Temperature - - Respiratory Rate 16 04/25/2018 12:00 PM EDT Oxygen Saturation - - Inhaled Oxygen Concentration - - Weight 101 kg (222 lb) 04/25/2018 12:00 PM EDT Height 172.7 cm (5' 8 ) 04/25/2018 12:00 PM EDT Body Mass Index 33.75 04/25/2018 12:00 PM EDT Plan of Treatment Health Maintenance Due Date Last Done Comments Hepatitis B Vaccine (1 of 3 - 19+ 3-dose series) 12/06 Pneumococcal Vaccine: Peds ( 0 to 5 Years) and At-Risk Patients (6 to 49 Years) (1 of 2 - PCV) 1996 Diabetes: Hemoglobin A1C 12/07/2019 Diabetes: Ophthalmology Exam 12/07/2019 Diabetes: Pedal Pulse Checked 12/07/2019 Diabetes: Sensory Foot Exam 12/07/2019 Diabetes: Visual Foot Exam 12/07/2019 Influenza Vaccine (Season Ended) 2025 05/20/20 15 Care Teams Rn Office Relationship Specialty Start Date End Date Silvestre Varghese FNP [address] [place] [address], [address] [place] [address] PCP - General 07/10/19
--- NOTE | 2025-01-07 08:58 | HO.ANESPROP2 ---
Documented by User: Birgit Long NP 01/07/25 08:58 HPI - Anesthesia Eval Consult details Narrative: 49yo M for Upper Endoscopy and Colonoscopy Anesthesia Pre-Procedure Meds Is the patient on any of the following meds?: GLP1/DPP4 PMFSH Active Problems Active Problems: All Active Problems GERD (gastroesophageal reflux disease) (Acute) Past Medical History Medical History GERD (gastroesophageal reflux disease) Chronic, continuous use of opioids Dyslipidemia HTN (hypertension) Diabetes mellitus, type II Obesity Asthma Backache Anxiety Depression Pure hypercholesterolemia Surgical History Surgical History History of back surgery Social History Social History Patient Tobacco Use Status: Never used Tobacco Second Hand Smoke Exposure: No Use of substances other than those prescribed or required for medical reasons: No Have you been hit, kicked, punched, or otherwise hurt by someone within the past year? If so, by whom?: No Are you DNR?: No Advance Directives: No Advance Directives Information Provided: Yes Advance Directives on File: No Poor oral hygiene: No Meds Allergies Allergy/AdvReac Type Severity Reaction Status Date / Time Pork/Porcine Containing Allergy Intermediate hives/rash Verified 01/03/25 13:44 Products losartan [Cozaar] Allergy Unknown Unknown Verified 08/08/24 15:27 Home Medications ?Medication ?Instructions ?Recorded ?Confirmed ?Last Taken ?Type amlodipine 5 mg tablet 5 mg PO DAILY 08/08/24 01/03/25 01/07/25 History atorvastatin 20 mg tablet 20 mg PO DAILY 08/08/24 01/03/25 01/07/25 History bupropion HCl 300 mg 24 hr tablet, 300 mg PO DAILY 08/08/24 01/03/25 01/07/25 History extended release flash glucose sensor (FreeStyle #1 ea 08/08/24 Unknown History Anthony 2 Sensor kit) insulin aspart 13 unit subcut TID 08/08/24 01/03/25 01/07/25 History (niacinamide)(U-100) 100 unit/mL(3 mL) subcutaneous pen (Fiasp FlexTouch U-100 Insulin) lisinopril 2.5 mg tablet 2.5 mg PO DAILY 08/08/24 01/03/25 01/07/25 History metformin 1,000 mg tablet 1,000 mg PO BID 08/08/24 01/03/25 01/07/25 History omega-3 300 mg-dha 120 mg-epa 180 1 cap PO DAILY 08/08/24 01/03/25 Unknown History mg-fish oil 1,000 mg capsule sitagliptin phosphate 100 mg 100 mg PO DAILY 08/08/24 01/03/25 01/05/25 History tablet (Januvia) spironolactone 25 mg tablet 25 mg PO DAILY 08/08/24 01/03/25 01/07/25 History insulin glargine 100 unit/mL (3 10 unit subcut BEDTIME 01/03/25 01/03/25 01/07/25 History mL) subcutaneous pen (Lantus Solostar U-100 Insulin) Exam Height,Weight and Vital Signs: Height 5 ft 8 in Weight 93.44 kg Assessment and Plan Assessment Anesthesia Assessment: Chart Reviewed Documented by User: Nurys Galvez MD 01/08/25 08:09 HPI - Anesthesia Eval Anesthesia Pre-Procedure Meds Is the patient on any of the following meds?: GLP1/DPP4 (Last dose of Sitagliptin 01/05/25) [facility] Past Medical History Medical History GERD (gastroesophageal reflux disease) Chronic, continuous use of opioids Dyslipidemia HTN (hypertension) Diabetes mellitus, type II Obesity Asthma Backache Anxiety Depression Pure hypercholesterolemia Family History Family history of problems with anesthesia: No Surgical History Surgical History History of back surgery History of Problems with Anesthesia: No Social History Social History Patient Tobacco Use Status: Never used Tobacco Second Hand Smoke Exposure: No Use of substances other than those prescribed or required for medical reasons: No Have you been hit, kicked, punched, or otherwise hurt by someone within the past year? If so, by whom?: No Are you DNR?: No Advance Directives: No Advance Directives Information Provided: Yes Advance Directives on File: No Poor oral hygiene: No Meds Allergies Allergy/AdvReac Type Severity Reaction Status Date / Time Pork/Porcine Containing Allergy Intermediate hives/rash Verified 01/03/25 13:44 Products losartan [Cozaar] Allergy Unknown Unknown Verified 08/08/24 15:27 Home Medications ?Medication ?Instructions ?Recorded ?Confirmed ?Last Taken ?Type amlodipine 5 mg tablet 5 mg PO DAILY 08/08/24 01/03/25 01/07/25 History atorvastatin 20 mg tablet 20 mg PO DAILY 08/08/24 01/03/25 01/07/25 History bupropion HCl 300 mg 24 hr tablet, 300 mg PO DAILY 08/08/24 01/03/25 01/07/25 History extended release flash glucose sensor (FreeStyle #1 ea 08/08/24 Unknown History Anthony 2 Sensor kit) insulin aspart 13 unit subcut TID 08/08/24 01/03/25 01/07/25 History (niacinamide)(U-100) 100 unit/mL(3 mL) subcutaneous pen (Fiasp FlexTouch U-100 Insulin) lisinopril 2.5 mg tablet 2.5 mg PO DAILY 08/08/24 01/03/25 01/07/25 History metformin 1,000 mg tablet 1,000 mg PO BID 08/08/24 01/03/25 01/07/25 History omega-3 300 mg-dha 120 mg-epa 180 1 cap PO DAILY 08/08/24 01/03/25 Unknown History mg-fish oil 1,000 mg capsule sitagliptin phosphate 100 mg 100 mg PO DAILY 08/08/24 01/03/25 01/05/25 History tablet (Januvia) spironolactone 25 mg tablet 25 mg PO DAILY 08/08/24 01/03/25 01/07/25 History insulin glargine 100 unit/mL (3 10 unit subcut BEDTIME 01/03/25 01/03/25 01/07/25 History mL) subcutaneous pen (Lantus Solostar U-100 Insulin) Exam Height,Weight and Vital Signs: Height 5 ft 8 in Weight 93.44 kg Vital Signs Temp Pulse Resp BP Pulse Ox O2 Del Method 01/08/25 07:28 97.8 F 73 16 126/67 99 Room Air Pertinent Lab Results Pertinent Lab Results: Lab Results 01/08/25 Range/Units 07:23 POC Glucose 257 H (60-115) mg/dL Airway Mallampati Class: II (Fat neck) TM Dist: >3cm Neck ROM: Full Loose/Missing/Broken Teeth: Yes (Missing molars. Denies broken or loose teeth) Heart: RRR Lungs: CTAB Assessment and Plan Assessment Anesthesia Assessment: Anesthesia Plan Discussed and Chart Reviewed Final Anesthetic Review Family History of Problems with Anesthesia: No History of Problems with Anesthesia: No NPO: Yes ASA Class: III Final Preanesthetic Review: No Changes in Pt Med Stat, Meds/Allgs Chart Reviewed, Consent Obtained/Reviewed and Anes Risks/Benef Reviewed Patient Risk: Intermediate Procedure Risk: Low Assessment/Block/Sedation in SS: Assess/Block/Sedation-SS Anesthetic Plan Anesthetic Plan: TIVA Disposition: Standard PACU
[2025-01-08] VITALS (7 sets, daily range): BP systolic 88–126; BP diastolic 48–70; PULSE 60–74; RESP 16–18; TEMP 36.3–36.6; O2SAT 95–99; BMI 30.2
[2025-01-08 07:28] LABS: Glucose, Whole Blood 257 mg/dL (60-115)
[2025-01-08] MEDS: Lactated Ringers 1,000 ML 100 ML IVCONT (07:29)
--- NOTE | 2025-01-08 07:42 | MHC.SHP ---
Pre-Procedural Eval Section A - 24 Hr Update-Section A only Date of Service: 01/08/25 Section B - Complete if H&P > 30 days Chief Complaint: gerd,screening Details of Present Illness: GERD (gastroesophageal reflux disease) Chronic, continuous use of opioids Dyslipidemia HTN (hypertension) Diabetes mellitus, type II Obesity Asthma Backache Anxiety Depression Pure hypercholesterolemia Allergies: Allergies Allergy/AdvReac Type Severity Reaction Status Date / Time Pork/Porcine Containing Allergy Intermediate hives/rash Verified 01/03/25 13:44 Products losartan [Cozaar] Allergy Unknown Unknown Verified 08/08/24 15:27 Review of Systems Review of Systems Comment: Ten point ROS negative Exam Exam Comment: Gen appear: No acute distress HEENT: no icterus Chest: No overt resp distress Abd: soft, nontender, nondistended Psych: Stable affect, answering questions appropriately Neuro: A/Ox3 noted to move all extremities spontaneously Ext: no peripheral edema Plan Diagnosis/Plan: Unchanged I have reviewed the history and physical and performed a pertinent physical examination on my patient. No changes have occurred unless specified. Time Spent With Patient Time: Total time managing care of this patient today ____ minutes.
--- NOTE | 2025-01-08 09:02 | P.OPN-COLO_ITS ---
Colonoscopy Operative Note Operative Note Date of Service: 01/08/25 Narrative: Procedure: Upper endoscopy and colonoscopy Indication: GERD, screening Endoscopist: Ashley Charles MD Anesthesia Provider: Dr Nurys Galvez Anesthesia type: MAC Instrument: GIF-H190 and [id number]-[id number] EGD Procedure:?? The procedure, indications, preparation and potential complications were reviewed with the patient, who indicated understanding and gave written informed consent to proceed. The endoscope was introduced through the mouth, and advanced to the 2nd part of the duodenum. The mucosa was carefully examined on slow withdrawal of the endoscope. The patient tolerated the procedure well. There were no immediate complications.? EGD Findings:? * Esophagus:? Erythema and small erosions measuring < 5 mm. The Z-line was at 39 cm. Cold forceps biopsies were taken from middle and lower esophagus to rule out eosinophilic esophagitis. * Stomach:? Normal gastric mucosa. Retroflexion was performed in the cardia. Random cold forceps biopsies were taken from the stomach. * Duodenum:? Normal duodenal mucosa. Cold forceps biopsies were taken from the duodenal bulb and 2nd portion of the duodenum to rule out celiac sprue. Colonoscopy Procedure:? The patient was then turned for the colonoscopy. A digital rectal exam was performed which was normal.? A distal attachment cap was affixed to the tip of the scope and the colonoscope was then inserted through the anus and advanced through the colon and advanced to the cecum at 80 cm and terminal ileum.? Appendiceal orifice and ileocecal valve were identified. Mucosa was carefully examined under high definition white light as the instrument was slowly withdrawn in a retrograde panoramic fashion. Retroflexion was performed in rectum. The procedure was not difficult. The quality of the prep was BBPS: 2+2+2 = adequate Withdrawal time 11 minutes Limitations: No limitations Findings: Mucosa: Normal colon and terminal ileum mucosa. Protruding lesions: * Small internal hemorrhoids without stigmata of recent bleeding. Impression: 1. Grade A esophagitis (biopsy) 2. Normal stomach (biopsy) 3. Normal duodenum (biopsy) 4. Normal colon and terminal ileum mucosa 5. Internal hemorrhoids Recommendations:?? * Follow-up path results * Avoid NSAIDs * Cont PPI * Repeat colonoscopy for CRC screening in 10 years. Consider using adult scope - PCF scope with some looping that caused self limiting short bradycardiac ep isodes during the procedure.
== END 2025-01-08 10:25 | disposition home or self-care (01) ==
PROVIDERS: PCP Student in an Organized Health Care Education/Training Program; Visit Provider Internal Medicine
PROC: (CPT 43239; principal; 2025-01-08 08:20)
DX: Z12.11 Encounter for screening for malignant neoplasm of colon (principal); K64.8 Other hemorrhoids; K21.00 Gastro-esophageal reflux disease with esophagitis, without bleeding; K21.9 Gastro-esophageal reflux disease without esophagitis; I10 Essential (primary) hypertension; E78.00 Pure hypercholesterolemia, unspecified; E11.9 Type 2 diabetes mellitus without complications; M54.9 Dorsalgia, unspecified; E66.9 Obesity, unspecified; Z68.31 Body mass index [BMI] 31.0-31.9, adult; Z79.4 Long term (current) use of insulin; Z79.84 Long term (current) use of oral hypoglycemic drugs; F11.20 Opioid dependence, uncomplicated; Z88.8 Allergy status to other drugs, medicaments and biological substances; Z91.014 Allergy to mammalian meats; Z98.890 Other specified postprocedural states
CPT/HCPCS: 43239; G0121; 82947; 88305; 88313; 88342; J1596; J2003; J2704

== ENCOUNTER → 2025-01-08 06:47 | Outpatient (BNV) | payer MEDICARE, MEDICAID, SELFPAY | PROVIDERS: PCP Student in an Organized Health Care Education/Training Program; Visit Provider Internal Medicine | DX: Z12.11 Encounter for screening for malignant neoplasm of colon (principal); K64.8 Other hemorrhoids; K21.00 Gastro-esophageal reflux disease with esophagitis, without bleeding | CPT/HCPCS: 43239; G0121 ==

== ENCOUNTER 2025-03-21 14:59 | Outpatient (AMB) | payer OTHER, SELFPAY ==
--- NOTE | 2025-03-21 15:06 | A.OFFVIS_ITS ---
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 patient states has said he does stop breathing at night and states he wakes up tired. no history of sleep studies Accompanied by: Self / Same As Patient Allergies Pork/Porcine Containing Products Allergy (Intermediate, Verified 03/21/25 15:10) hives/rash losartan (Cozaar) Allergy (Unknown, Verified 03/21/25 15:10) Unknown HPI Comments Details: 49 year male here for a sleep evaluation referred to us by his pcp. PMH : While he was working, he crushing back injury, and had l4/l5 fusion in 2007, [facility] [address] [facility]. He stops breathing snores loudly and gasps for air, per his . He feels chronically tired. Will wake up in the middle of the night and get on his phone watching the videos on his phone. Has a +h/o bells palsey. He goes to sleep at 10pm and wakes up at 6am with 3 bathroom breaks. He has morning headaches, lasting 1-2 hours and he takes tylenol 2-3x a week then hydrates. RLS Denies. Memory is stable. Mood has improved less anxious and depressed now. He lost his daughter 28year old due to Lupus. He goes to denominational and has a good social support network. He is taking buproprion and goes to therapy every week. His diet is improved now eating a more ship cleaner diet, since being on prednisone he has T2DM well managed. BP is well managed. FH+ dementia mom and grandma. [facility] Medical History GERD (gastroesophageal reflux disease) Chronic, continuous use of opioids Dyslipidemia HTN (hypertension) Diabetes mellitus, type II Obesity Asthma Backache Anxiety Depression Pure hypercholesterolemia Surgical History History of back surgery Social History Patient Tobacco Use Status: Never used Tobacco Second Hand Smoke Exposure: No Physical Exam Vital Signs: Last Vital Signs Pulse 75 03/21/25 15:08 Pulse Ox 94 03/21/25 15:08 Oxygen Delivery Method Room Air 03/21/25 15:08 BMI result Body Mass Index 30.1 Const General: cooperative, comfortable and no acute distress Nutritional Appearance: average body habitus Orientation/consciousness: patient oriented x3 HEENT Face and sinus: Yes face symmetric Teeth and gingiva: other (M[place]ampti score 3) Eyes Pupils: Equal, round and reactive pupils present Neck Neck: Yes full ROM Resp Effort & Inspection: normal respiratory effort and able to speak in complete sentences Neuro General: patient oriented x3 and moves all extremities Cranial nerves: Yes Equal, round and reactive pupils present, Yes Normal accommodation reflex present, Yes Nystagmus not present, Yes Normal facial strength present, Yes Midline tongue present, Yes Ability to bilaterally rotate head present and Yes Ability to bilaterally elevate shoulders present Cognition (Neuro): normal cognition Gait exam (Neuro): Normal gait present Motor exam (neuro): 5/5 motor strength present throughout and Normal motor muscle tone present throughout Psych Appearance: grossly normal Attitude: cooperative Thought process: Normal thought process present Thought content: Normal thought content present Assessment & Plan Assessment & Plan (1) Excessive daytime sleepiness: Comment: HST Code(s): G47.19 - Other hypersomnia Category: Medical (2) Nocturia more than twice per night: Comment: urology referral Code(s): R35.1 - Nocturia Category: Medical Plan HST r/o malik Labs r/o deficiencies. Nocturia urology referral Orders: Orders Ferritin 03/21/25 G47.19 - Other hypersomnia Homocysteine 03/21/25 G47.19 - Other hypersomnia, G47.9 - Sleep disorder, unspecified, R53.83 - Other fatigue Methylmalonic Acid 03/21/25 G47.19 - Other hypersomnia, G47.9 - Sleep disorder, unspecified, R53.83 - Other fatigue Hemoglobin A1c 03/21/25 G47.19 - Other hypersomnia Vitamin D 25-OH Total 03/21/25 G47.19 - Other hypersomnia Vitamin B12 and Folate 03/21/25 G47.19 - Other hypersomnia RT home sleep study 03/21/25 G47.19 - Other hypersomnia Referrals Urology Referral R35.1 - Nocturia Patient Instructions: Sleep Hygiene provided: set a scheduled bedtime and wake time to help regulate the circadian rhythm and balance the release of pituitary hormones. Sleep in a dark room, temperatures below 68 degrees, and no devices n bed. Limit caffeinated products 6 hours prior to bed, and limit fluids 2-4 hours prior to bed. Gentle night yoga, diffusing essential oils, and playing soft music can be relaxing. urology- Coding Level of Care Code New Pt Level 4 (01342) Diagnoses Excessive daytime sleepiness G47.19 Nocturia more than twice per night R35.1 Time Spent (min) 20 Comment Evaluation Sleep Questionnaire Difficulty falling asleep: No Difficulty staying asleep?: Yes Number of arousals: 3x bathroom, Snoring: Yes Witnessed apneas: Yes Gasping arousals: Yes Nocturia: Yes GERD: No (diet) Vivid dreams: Yes (dreams about his daughter who passed Jun 2022 ) Acting out dreams: No Abnormal behavior in sleep: No Abnormal movements in sleep: No (nodding yes and shakes his head) Morning headaches: Yes Excessive daytime sleepiness: Yes Daytime naps: Yes (45 min daily at 2-3pm) Restless legs: No Hallucinations: No Sleep paralysis: No Drop attacks: No Sleep Study: No CPAP: No
[2025-03-21 15:08] VITALS: PULSE 75; O2SAT 94; BMI 30.1
--- OUTSIDE RECORDS SUMMARY | 2025-03-21 15:43 | XMS_ITS | Clinical Summary ---
Author Organization [facility] Address [address] [place] [address] Care Team Providers Care Fresh Foods Cake Decorator Name Role Phone Unavailable Primary Care Provider [...] Cancer Screening (Colonoscopy) 2022 Influenza Vaccine (#1) 2025 Pneumococcal Vaccine Aged Out No long er eligible based on patient's age to complete this topic RSV Ped < 20 months Aged Out No longe r eligible based on patient's age to complete this topic
--- OUTSIDE RECORDS SUMMARY | 2025-03-21 15:43 | XMS_ITS | Encounter Summary ---
Author Organization [employer] Address [address] [facility] 7 [place] [address] Care Team Providers Care Professor Of Historical Theology Name Role Phone Juany Escobar MD Primary Care Pro vider Reason for Visit * Reason Onset Date Comments Med Refill 03/04/2025 Encounter Details Date Type Department Care Team (Late st Contact Info) Description 03/04/2025 Telephone [facility] [address] [place] [address] Juany Escobar MD [address] [place] [address] Med Refill Social History Tobacco Use Types [...] your housing situation today? I have foster sing 12/04/[address] you li [...] encounter Miscellaneous Notes * Telephone Encounter - Mayda Carrero LPN - 03/04/2025 11:40 AM EDT SITagliptin (Januvia) 100 MG tablet is not prescribed by pcp.Please review requesting a renewal to out of state pharmacy * Telephone Encounter - Casandra Bowie - 03/04/2025 11:35 AM EDT TC from pt requesting medication refill. Medications needing refill : SITagliptin (Januvia) 100 MG tablet spironolactone (Aldactone) 25 MG tablet To be sent to: [facility]/pharmacy #[id number] - [place], [place] - [address] documented in this encounter Plan of Treatment Upcoming Encounters Date Type Department Care Team (Late st Contact Info) Description 04/16/2025 1:30 PM EDT Office Visit [facility] [address] [place] [phone] Juany Escobar MD [address] [place] [address] documented as of this encounter Visit Diagnoses Not on filedocumented in this encounter Additional Health Concerns Assessment Noted Time PHQ-9 Depression Total Score: 0 12/05/19 25 11:28 AM EDT documented as of this encounter Care Teams Professor Of Historical Theology Relationship Specialty Start Date End Date Juany Escobar MD [address] [place] [id number] PCP - General Internal Medicine 03/25/23 documented as of this encounter
--- OUTSIDE RECORDS SUMMARY | 2025-03-21 15:44 | XMS_ITS | Clinical Summary ---
Author Organization [facility] Facility Address [address] [place] [address] Care Team Providers Care Potato Inspector Name Role Phone Silvestre Varghese [facility] Primary Care Provider [phone] Family History Medical History Relation Comments Kidney [...] Diabetes: Visual Foot Exam 12/07/2019 Influenza Vaccine (#1) 2025 05/20/2015 Care Teams Potato Inspector Relationship Specialty Start Date End Date Silvestre Varhgese FNP [address] [place] [address], [address] [place] [address] PCP - General 07/10/19
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
--- OUTSIDE RECORDS SUMMARY | 2025-03-21 15:44 | XMS_ITS | Patient Health Record ---
Author Organization [facility] Address [address] [place] [address] Care Team Providers Care Rod Puller Name Role Phone Silvestre Varghese Primary Care Provider Sridhar Medellin Unavailable [phone] Allergies Allergen (clinical drug ingredient) Drug/Non Drug Allergy documented on EMR Reaction Allergy Type Onset Date Status Motrin Unknown Drug Allergy Active Reason For Referral No Information Medications Medication SIG (Take, Route, Frequency, Duration) Notes Start Date End Date Status Citalopram & Diet Manage Prod Active Echinacea Goldenseal Plus Active [place] 3 1000 MG Orally Acti ve Vitamin C 500 MG Orally Act lalit oxyCODONE HCl 5 MG Orally A ctive atenolol Active Biotin 1000 MCG Orally Acti ve amLODIPine Besylate 2.5 MG Orally Active DHEA 50 MG Orally Active Lisinopril 20 MG Orally Act lalit Econazole Nitrate 1 % 1 application to a ffected area Externally Once a day; Duration: 30 days 10/08/2015 Active Atorvastatin Calcium 20 MG Orally Active Multivitamin Active Vitamin B 12 Active Folic Acid 400 MCG Orally A ctive metFORMIN HCl 500 MG Orally Active B-Complex Active Vitamin D3 1000 UNIT Orally Active Lecithin 1200 MG Orally Act lalit Problems Problem Type SNOMED Code ICD Code Onset Dates Problem Status W/U Status Risk Notes Problem Neurologic disorder associated with type II diabetes mellitus (383992719) Type 2 diabetes mellitus with other diabetic neurological complication (E11.49) Active confirmed Plan Of Treatment Pending Test Test Name Order Date [id number] NAIL, 1-5 10/08/2015 [id number] SKIN LESIONS, 2 TO 4 10/08/19 16 [id number] NAIL(S) 10/08/2015 Insurance Providers Payer Name Payer Address Payer Phone Subscriber Number Group Number Insured Name Patient Relationship to Insured Coverage Start Date Coverage End Date Medicare National [employer] [address] [place] [address] [id number] Joe Pabon Self - patient is the insured Medical (General) History Medical History History ICD Code Anxiety asthma Back pain type II diabetes High blood pressure Bonaparte palsy Chicken pox Joint implants/screws Surgical History Surgery Date(Month/Year) back surgery 2005
--- OUTSIDE RECORDS SUMMARY | 2025-03-21 15:44 | XMS_ITS ---
Author Name [facility] Organization Unknown Encounters Encounter Type Encounter Reason Primary Diagnosis Location Date Ambulatory Contact with and (suspected) exposure to covid-19 [place] 03/12/2022 Ambulatory Contact with and (suspected) exposure to covid-19 [place] 10/11/2021 Ambulatory Contact with and (suspected) exposure to covid-19 [place] 07/08/2021 Care Team Organization Name Specialty Phone Email Start Date End Da te [place] 03/12/2022 03/12/2022 [place] 03/12/2022
--- OUTSIDE RECORDS SUMMARY | 2025-03-21 15:44 | XMS_ITS | Clinical Summary ---
Author Organization [facility] Address [address] [place] [address] Care Team Providers Care Horse Stud Manager Name Role Phone Unknown Primary Care Provider [...] Cap capsule 1 Active UltiCare Mini Pen [place] 31G X 6 MM Misc 1 Active [...] 84 12/02/2020 5:04 PM EDT Temperature 36.9 C (98.4 F) 03/12/2022 1:28 PM EDT Respiratory Rate - - Oxygen Saturation 99% [...] 3-dose series) 1996 Colonoscopy 2022 COVID-19 Vaccine (1 - 2023-2 5 season) 2024 Influenza Vaccine 04/05/2025 Pneumococcal Vaccine: Pediat bruce (0-5 Years) and At-Risk Patients (6 to 49 Years) Aged Out No longer eligible b ased on patient's age to complete this topic Insurance [facility] INSURANCE [employer] HMO Care Teams Horse Stud Manager Relationship Specialty Start Date End Date Unknown Unknow Provider Address PCP - General 10/23/20
== END 2025-03-21 16:04 | disposition home or self-care (01) ==
LOC: HO.HSMS 15:00
PROVIDERS: PCP Student in an Organized Health Care Education/Training Program; Visit Provider Physician Assistant Medical
DX: G47.19 Other hypersomnia (principal); R35.1 Nocturia
CPT/HCPCS: 99204

== ENCOUNTER 2025-04-02 08:59 | Outpatient (REF) | payer OTHER, SELFPAY ==
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
--- OUTSIDE RECORDS SUMMARY | 2025-04-02 09:19 | XMS_ITS | Encounter Summary ---
Author Organization [facility] Address [address] [place] [address] Phone Care Team Providers Care Africana Studies Professor Name Role Phone Juany Escobar MD Primary Care Pro vider Encounter Details Date Type Department Care Team (Late st Contact Info) Description 10/10/2023 Procedure Pass [facility], Ct Scan - [facility] [address] [place] [address] Social History Tobacco Use Types Packs/Day Years Used Date Smoking Tobacco: Never Assessed Education Answer Date Recorded Are you interested in more education? Not on davidson e 05/01/2023 Are you concerned about learning? Not on file 05/01/2023 No 05/01/2023 No 05/01/2023 Digital Access Answer Date Recorded No 05/01/2023 No 05/01/2023 Reliable internet access at home? Not on file 05/01/2023 Device with a working camera? Not on file Sex and Gender Information Value Date Recorded Sex Assigned at Male 10/10/2023 6:43 PM EST Legal Sex Male 9:25 PM EDT Gender Identity Male 10/10/2023 6:43 PM EST Sexual Orientation Straight 12/21/2023 10 :49 AM EDT documented as of this encounter Functional Status * Calculated C-SSRS Risk Score (Lifetime/Recent) Answer Date of Assessment Author No Risk Indicated 10/10/2023 6:42 PM Batsheva Boyd RN * [place] Suicide Severity Rating Scale (Screener/Recent Self-Report) Question Answer Date of Assessment Author 1. Wish to be (Past 1 Month) No 024 6:42 PM EST [place], Batsheva, RN 2. Non-Specific Active Suici radha Thoughts (Past 1 Month) No 10/10/2023 6:42 PM Batsheva Boyd RN 6. Suicidal Behavior (Lifetime) No 6:42 PM Batsheva Boyd RN documented as of this encounter Plan of Treatment Not on file documented as of this encounter Visit Diagnoses Not on filedocumented in this encounter Care Teams Africana Studies Professor Relationship Specialty Start Date End Date Juany Escobar MD [address] [place] [address] PCP - General Internal Medicine 10/10/23 documented as of this encounter Additional Source Comments The information contained in this document represents components of the legal health record. It is not the complete legal health record.[facility]
--- OUTSIDE RECORDS SUMMARY | 2025-04-02 09:19 | XMS_ITS | Encounter Summary ---
Author Organization [employer] Address [address] [facility] 7 [place] [address] Care Team Providers Care Forensic Engineer Name Role Phone Juany Escobar MD Primary Care Pro vider Reason for Visit * Reason Onset Date Comments Med Refill 03/04/2025 Encounter Details Date Type Department Care Team (Late st Contact Info) Description 03/04/2025 Telephone [facility] [address] [place] [address] Juany Escobar MD [address] [place] [address] Med Refill Social History Tobacco Use Types [...] 25 MG tablet To be sent to: [facility]/pharmacy #[id number] - [place], [place] - [address] documented in this encounter Plan of Treatment Upcoming Encounters Date Type Department Care Team (Late st Contact Info) Description 04/16/2025 1:30 PM EDT Office Visit [facility] [address] [place] [address] Juany Escobar MD [address] [place] [address] documented as of this encounter Visit Diagnoses Not on filedocumented in this encounter Additional Health Concerns Assessment Noted Time PHQ-9 Depression Total Score: 0 12/05/19 25 11:28 AM EDT documented as of this encounter Care Teams Forensic Engineer Relationship Specialty Start Date End Date Juany Escobar MD [address] [place] [address] PCP - General Internal Medicine 03/25/23 documented as of this encounter
--- OUTSIDE RECORDS SUMMARY | 2025-04-02 09:19 | XMS_ITS | Patient Health Record ---
Author Organization [facility] Address [address] [place] [address] Care Team Providers Care Software Technical Lead Name Role Phone Silvestre Varghese Primary Care Provider Sridhar Medellin Unavailable [phone] Allergies Allergen (clinical drug ingredient) Drug/Non Drug Allergy documented on EMR Reaction Allergy Type Onset Date Status Motrin Unknown Drug Allergy Active Reason For Referral No Information Medications Medication SIG (Take, Route, Frequency, Duration) Notes Start Date End Date Status Citalopram & Diet Manage Prod Active Echinacea Goldenseal Plus Active [place] 3 1000 MG Orally Acti ve Vitamin [...] Problem Status W/U Status Risk Notes Problem Type 2 diabetes mellitus with other diabetic neurological complication (E11.49) Active confirmed Plan Of Treatment Pending Test Test Name Order Date [id number] NAIL, 1-5 10/08/2015 [id number] SKIN LESIONS, 2 TO 4 10/08/19 16 [id number] NAIL(S) 10/08/2015 Insurance Providers Payer Name Payer Address Payer Phone Subscriber Number Group Number Insured Name Patient Relationship to Insured Coverage Start Date Coverage End Date Medicare National Govt Svcs Inc [address] [place] [address] [id number] Joe Pabon Self - patient is the insured Medical (General) History Medical History History ICD Code Anxiety asthma Back pain type II diabetes High blood pressure [place] palsy Chicken pox Joint implants/screws Surgical History Surgery Date(Month/Year) back surgery 2005
--- OUTSIDE RECORDS SUMMARY | 2025-04-02 09:19 | XMS_ITS | Clinical Summary ---
Author Organization [facility] Address [address] [place] [address] Care Team Providers Care Clinical Rehabilitation Aide Name Role Phone Unavailable Primary Care Provider [...]
--- OUTSIDE RECORDS SUMMARY | 2025-04-02 09:19 | XMS_ITS | Clinical Summary ---
Author Organization [facility] Address [address] [place] [address] Care Team Providers Care Field Seismologist Name Role Phone Unknown Primary Care Provider [...] Cap capsule 1 Active UltiCare Mini Pen [place] 31G X 6 MM Misc 1 Active [...] patient's age to complete this topic Insurance [facility] INSURANCE CIGNA HMO Care Teams Field Seismologist Relationship Specialty Start Date End Date Unknown Unknow Provider Address PCP - General 10/23/20
--- OUTSIDE RECORDS SUMMARY | 2025-04-02 09:19 | XMS_ITS | Clinical Summary ---
Author Organization [facility] Address [address] [place] [address] Care Team Providers Care Field Ironworker Name Role Phone Silvestre Varghese [facility] Primary Care Provider Family History Medical [...] Influenza Vaccine (#1) 2025 05/20/2015 Care Teams Field Ironworker Relationship Specialty Start Date End Date Silvestre Varghese FNP [address] [place] [address], [address] [place] [address] PCP - General 07/10/19
[2025-04-02 11:17] LABS: Hematocrit 45.7 % (42.0-52.0); Hemoglobin 15.8 g/dl (14.0-18.0); Mean Corpuscular HGB Conc 34.6 g/dl (31.0-36.0); Mean Corpuscular Hemoglobin 30.0 pg (27.0-33.0); Mean Corpuscular Volume 86.9 fL (80.0-98.0); NRBC Abs Auto 0.000 X10*3/uL (0.0-0.012); NRBC Pct Auto 0.0 /100WBC (0.0-0.2); Platelet Count 240 X10*3/uL (160-400); Red Blood Count 5.26 X10*6/uL (4.60-5.80); White Blood Count 6.0 X10*3/uL (4.8-10.8)
[2025-04-02 11:25] LABS: Hemoglobin A1C 315.3795 umol/L; Total Hemoglobin (HGBA1C) 4133.4002 umol/L
[2025-04-02 11:50] LABS: Syphilis Screen Nonreactive (Nonreactive)
[2025-04-02 11:51] LABS: Alanine Aminotransferase 26 U/L (0-40); Albumin Level 4.7 g/dL (3.5-5.0); Alkaline Phosphatase 91 U/L (39-117); Anion Gap 11 (12-20); Aspartate Amino Transferase 22 U/L (5-37); Blood Urea Nitrogen 11 mg/dL (9-16); Calcium 9.4 mg/dL (8.4-10.2); Carbon Dioxide 29 mmol/L (22-29); Chloride 105 mmol/L (96-108); Cholesterol 108 mg/dL (<200); Estimated Glomerular Filt Rate > 60; HBS Num1 0.14 mIU/mL (0-7.99); HBc Num1 0.05 S/CO (0.00-0.79); HBsAGNum1 0.35 S/CO (0.00-0.99); HDL Cholesterol 37 mg/dL (>40); HIV Num 1 0.06 S/CO (0.00-0.99); Hepatitis B Surface Antigen Negative (Negative); Potassium 4.5 mmol/L (3.3-5.1); Sodium 140 mmol/L (135-145); Total Protein 7.2 g/dL (6.5-8.0); Triglycerides 83 mg/dL (<150); ~HepC Num1 0.09 S/CO (0.00-0.79); ~Hepatitis B Surface Antibody NONREACTIVE (Nonreactive); ~Hepatitis C Antibody Nonreactive (Nonreactive)
[2025-04-02 12:00] LABS: Microalbum/Creatinine Ratio Ur 62.0 ug/mg cr (<30)
[2025-04-02 12:03] LABS: Folate 14.0 ng/mL (> or = 4.0); Vitamin B12 736 pg/mL (200-900)
[2025-04-02 12:09] LABS: Ferritin 47 ng/mL (20-250)
[2025-04-02 13:12] LABS: CT PCR Urine NOT DETECTED (Not Detect.); NG PCR Urine NOT DETECTED (Not Detect.)
[2025-04-07 00:29] LABS: Testosterone, Free 85.1 pg/mL (35.0-155.0)
== END 2025-04-02 09:00 | disposition home or self-care (01) ==
LOC: HO.HHCL 08:59
PROVIDERS: Physician Assistant Medical; PCP Student in an Organized Health Care Education/Training Program; Visit Provider Student in an Organized Health Care Education/Training Program
DX: Z11.4 Encounter for screening for human immunodeficiency virus [HIV] (principal); Z11.3 Encounter for screening for infections with a predominantly sexual mode of transmission; Z00.00 Encounter for general adult medical examination without abnormal findings; Z11.59 Encounter for screening for other viral diseases; R53.83 Other fatigue; G47.19 Other hypersomnia; N52.9 Male erectile dysfunction, unspecified
CPT/HCPCS: 36415; 80053; 80061; 82043; 82306; 82570; 82607; 82728; 82746; 83036; 83921; 84402; 84403; 84443; 85027; 86704; 86706; 86780; 86803; 87340; 87389; 87491; 87591

== ENCOUNTER 2025-04-04 07:50 | Outpatient (REF) | payer OTHER, SELFPAY ==
--- OUTSIDE RECORDS SUMMARY | 2025-04-04 07:52 | XMS_ITS | Clinical Summary ---
Author Organization [facility] Address [address] [place] [address] Care Team Providers Care Core Cutter And Reamer Name Role Phone Silvestre Varghese [facility] Primary Care Provider [phone] Family History Medical History Relation Comments Kidney [...] Influenza Vaccine (#1) 2025 05/20/2015 Care Teams Core Cutter And Reamer Relationship Specialty Start Date End Date Silvestre Varghese FNP [address] [place] [address], [address] [place] [address] PCP - General 07/10/19
--- OUTSIDE RECORDS SUMMARY | 2025-04-04 07:52 | XMS_ITS | Patient Health Record ---
Author Organization [facility] Address [address] [place] [address] Care Team Providers Care Raiser Helper Name Role Phone Silvestre Varghese Primary Care Provider Sridhar Medellin Unavailable [phone] Allergies Allergen (clinical drug ingredient) Drug/Non Drug Allergy documented on EMR Reaction Allergy Type Onset Date Status Motrin Unknown Drug Allergy Active Reason For Referral No Information Medications Medication SIG (Take, Route, Frequency, Duration) Notes Start Date End Date Status Citalopram & Diet Manage Prod Active Echinacea Goldenseal Plus Active [place] 3 1000 MG Orally Acti ve Vitamin [...] Treatment Pending Test Test Name Order Date [id number] NAIL, 1-5 10/08/2015 [id number] SKIN LESIONS, 2 TO 4 10/08/19 16 [id number] NAIL(S) 10/08/2015 Insurance Providers Payer Name Payer Address Payer Phone Subscriber Number Group Number Insured Name Patient Relationship to Insured Coverage Start Date Coverage End Date Medicare National Govt Svcs Inc [address] [place] [address] [phone] [id number] Joe Pabon Self - patient is the insured Medical (General) History Medical History History ICD Code Anxiety asthma Back pain type II diabetes High blood pressure [place] palsy Chicken pox Joint implants/screws Surgical History Surgery Date(Month/Year) back surgery 2005
--- OUTSIDE RECORDS SUMMARY | 2025-04-04 07:52 | XMS_ITS | Encounter Summary ---
Author Organization [facility] Address [address] [place] [address] Phone Care Team Providers Care Senior Sales Manager Name Role Phone Juany Escobar MD Primary Care Pro vider Encounter Details Date Type Department Care Team (Late st Contact Info) Description 10/10/2023 Procedure Pass [facility], Ct Scan - [facility] [address] [place] [address] Social History Tobacco Use Types Packs/Day Years [...] 10/10/2023 6:42 PM Batsheva Boyd RN * [place] Suicide Severity Rating Scale (Screener/Recent Self-Report) Question Answer Date of Assessment Author 1. Wish to be (Past 1 Month) No 024 6:42 PM EST [place], Batsheva, RN 2. Non-Specific Active Suici radha Thoughts (Past 1 Month) No 10/10/2023 6:42 PM Batsheva Boyd RN 6. Suicidal Behavior (Lifetime) No 6:42 PM Batsheva Boyd RN documented as of this encounter Plan of Treatment Not on file documented as of this encounter Visit Diagnoses Not on filedocumented in this encounter Care Teams Senior Sales Manager Relationship Specialty Start Date End Date Juany Escobar MD [address] [place] [address] PCP - General Internal Medicine 10/10/23 documented as of this encounter Additional Source Comments The information contained in this document represents components of the legal health record. It is not the complete legal health record.[facility]
--- OUTSIDE RECORDS SUMMARY | 2025-04-04 07:52 | XMS_ITS | Encounter Summary ---
Author Organization [employer] Address [address] [facility] 7 [place] [address] Care Team Providers Care Health Safety Specialist Name Role Phone Juany Escobar MD Primary Care Pro vider Reason for Visit * Reason Onset Date Comments Med Refill 03/04/2025 Encounter Details Date Type Department Care Team (Late st Contact Info) Description 03/04/2025 Telephone [facility] [address] [place] [address] Juany Escobar MD [address] [place] [address] Med Refill Social History Tobacco Use Types [...] 25 MG tablet To be sent to: [facility]/pharmacy #[id number] - [place], [place] [address]. documented in this encounter Plan of Treatment Upcoming Encounters Date Type Department Care Team (Late st Contact Info) Description 04/16/2025 1:30 PM EDT Office Visit [facility] [address] [place] [address] Juany Escobar MD [address] [place] [address] documented as of this encounter Visit Diagnoses Not on filedocumented in this encounter Additional Health Concerns Assessment Noted Time PHQ-9 Depression Total Score: 0 12/05/19 25 11:28 AM EDT documented as of this encounter Care Teams Health Safety Specialist Relationship Specialty Start Date End Date Juany Escobar MD [address] [place] [address] PCP - General Internal Medicine 03/25/23 documented as of this encounter
--- OUTSIDE RECORDS SUMMARY | 2025-04-04 07:52 | XMS_ITS | Clinical Summary ---
Author Organization [facility] Address [address] [place] [address] Care Team Providers Care Chemical Treatment Operator Name Role Phone Unknown Primary Care Provider [...] Cap capsule 1 Active UltiCare Mini Pen [place] 31G X 6 MM Misc 1 Active [...] patient's age to complete this topic Insurance [facility] INSURANCE CIGNA HMO Care Teams Chemical Treatment Operator Relationship Specialty Start Date End Date Unknown Unknow Provider Address PCP - General 10/23/20
--- OUTSIDE RECORDS SUMMARY | 2025-04-04 07:52 | XMS_ITS | Clinical Summary ---
Author Organization [facility] Address [address] [place] [address] Care Team Providers Care Analytics Developer Name Role Phone Unavailable Primary Care Provider [...]
[2025-04-04 09:53] LABS: Folate 14.5 ng/mL (> or = 4.0); Vitamin B12 734 pg/mL (200-900)
== END 2025-04-04 07:51 | disposition home or self-care (01) ==
LOC: HO.LAB 07:50
PROVIDERS: Physician Assistant Medical; PCP Student in an Organized Health Care Education/Training Program; Visit Provider Student in an Organized Health Care Education/Training Program
DX: Z00.00 Encounter for general adult medical examination without abnormal findings (principal); R53.83 Other fatigue; G47.19 Other hypersomnia
CPT/HCPCS: 36415; 82607; 82746; 83090

== ENCOUNTER 2025-06-19 14:33 | Outpatient (AMB) | payer OTHER, SELFPAY ==
--- NOTE | 2025-06-19 14:43 | A.OFFVIS_ITS ---
Intake Visit Reasons: nocturia Intake Note: New Patient is present for NOCTURIA Urology Rx:NONE Blood Thinners:NONE Imaging completed: NONE Driver/Sales Workers Required: No Accompanied by: Self / Same As Patient Allergies Pork/Porcine Containing Products Allergy (Intermediate, Verified 06/28/25 10:50) hives/rash losartan (Cozaar) Allergy (Unknown, Verified 06/28/25 10:50) Unknown HPI Comments Details: Joe is a male. He is a patient of Dr. Gaines. He is seen for the following urologic conditions - nocturia Diabetic HbA1c 9.1 Symptoms started after Januvia Januvia is well known as having a mechanism of action the dumps glucose into urine increasing polyuria, polydipsia and BPH symptoms. Recommend reducing Januvia to 10 mg PFSH Medical History GERD (gastroesophageal reflux disease) Chronic, continuous use of opioids Dyslipidemia HTN (hypertension) Diabetes mellitus, type II Obesity Asthma Backache Anxiety Depression Pure hypercholesterolemia Surgical History History of back surgery Family History (Updated 08/19/25 @ 09:15 by Falguni Knox [facility]) Mother Heart murmur Maternal Grandfather Heart attack Daughter Lupus (systemic lupus erythematosus) Social History (Updated 08/19/25 @ 09:15 by Falguni Knox [facility]) Alcohol intake: never Patient Tobacco Use Status: Never used Tobacco Second Hand Smoke Exposure: No Review of Systems Const Denies chills and Denies fever(s) Card Reports no additional complaints and Denies syncope Resp Denies cough GI Denies abdominal pain and Denies heartburn Reports as per HPI and Denies change in libido Neuro Denies syncope Psych Denies change in libido Endo Denies change in libido Physical Exam Const General: cooperative, healthy appearing, comfortable and no acute distress Orientation/consciousness: patient oriented x3 HEENT Face and sinus: Yes normal facial exam Mouth: moist mucous membranes Neck Neck: Yes normal visual inspection, Yes full ROM and Yes trachea midline Chest Chest palpation & inspection: normal inspection of the chest Resp Effort & Inspection: normal respiratory effort, able to speak in complete sentences and no respiratory distress GI Inspection: Yes normal to inspection Back/Spine/Pelvis Cervical Spine: normal cervical lordosis Thoracic/Lumbar Spine: thoracic and lumbar spine normal to inspection Skin General skin exam: no rashes or lesions noted Neuro General: patient oriented x3, gait normal, tone normal and moves all extremities Extrem General: Yes normal to inspection and Yes capillary refill normal Office Procedures Post Void Residual Post Residual Void Post Void Residual (PVR): 30 [id number] Void Residual by ultrasound Results AMB Urinalysis, Automated UA Leukoctes 0 Hailey/uL Last Edit by Alice Person [facility] on 06/19/25 14:52 UA Nitrite Negative Last Edit by Alicekelly Person, [facility] on 06/19/25 14:52 UA Urobilinogen 0.2 mg/dL Last Edit by Alice Raza [facility] on 06/19/25 14:52 UA Protein 30 mg/dL Last Edit by [facility], [facility] on 06/19/25 14:52 UA pH 5.5 Last Edit by [facility], [facility] on 06/19/25 14:52 UA Blood 0 Guillermo/uL Last Edit by Alice Raza [facility] on 06/19/25 14:52 UA Specific [place] 1.020 Last Edit by [facility], [facility] on 06/19/25 14:5 2 UA Ketone Negative Last Edit by Alice Raza [facility] on 06/19/25 14:52 UA Bilirubin 0 mg/dL Last Edit by [facility] on 06/19/25 14:52 UA Glucose 1000 mg/dL Last Edit by [facility] on 06/19/25 14:52 Results Reviewed Results Reviewed: Laboratory Last Values Urine pH (Auto) 5.5 06/19/25 14:51 Specific [place] (Auto) 1.020 06/19/25 14:51 Urine Protein (Auto) 30 mg/dL 06/19/25 14:51 Glucose (UA)(Auto) 1000 mg/dL 06/19/25 14:51 Urine Ketones (Auto) Negative 06/19/25 14:51 Urine Blood (Auto) 0 Guillermo/uL 06/19/25 14:51 Urine Nitrite (Auto) Negative 06/19/25 14:51 Urine Bilirubin (Auto) 0 mg/dL 06/19/25 14:51 Urine Urobilinogen (Auto) 0.2 mg/dL 06/19/25 14:51 Leukocyte Esterase (Auto) 0 Hailey/uL 06/19/25 14:51 Assessment & Plan Assessment & Plan (1) Nocturia more than twice per night: Comment: urology referral Code(s): R35.1 - Nocturia Category: Medical Plan Induce Chris P.r.n. follow-up when HbA1c under control Patient Instructions: This note is constructed using voice recognition software. While every effort has been made to ensure accuracy machines technician errors may have been included. Imaging studies, laboratory and physical exam results were discussed and reviewed in detail. No major barriers to patient understanding were identified. An opportunity to ask questions regarding the treatment plan was provided. All questions were answered. The patient expressed understanding and agreement with the above treatment plan. The patient is aware they should contact our office by phone for worsening of their current condition or the appearance of new urologic symptoms. Compliance is encouraged with any medications and followup testing that is ordered. It is a privilege to participate in the urologic care of your patient. If you have any questions or concerns regarding treatment for the above conditions, or other urologic issues, please do not hesitate to contact me. The office telephone contact is [phone]. Sincerely, Dr Yohannes Farrar MD, [facility] - Urology Compassionate Specialist Care for the Genitourinary System Coding Level of Care Code New Pt Level 3 (40011) Diagnoses Nocturia more than twice per night R35.1 CPT Codes Post Residual Void - PVR CPT Code: 26686-Ypew Void Residual by ultrasound ([id number])
--- OUTSIDE RECORDS SUMMARY | 2025-06-19 18:16 | XMS_ITS | Clinical Summary ---
Author Organization [facility] Address [address] [place] [address] Care Team Providers Care Cisco Consultant Name Role Phone Unavailable Primary Care Provider [...]
--- OUTSIDE RECORDS SUMMARY | 2025-06-19 18:17 | XMS_ITS | Encounter Summary ---
Author Organization [facility] Address [address] [place] [address] Phone Care Team Providers Care Stopper Maker Name Role Phone uJany Escobar MD Primary Care Pro vider Encounter Details Date Type Department Care Team (Late st Contact Info) Description 10/10/2023 Procedure Pass [facility], Ct Scan - [facility] [address] [place] [address] Social History Tobacco Use Types Packs/Day Years [...] 10/10/2023 6:42 PM Batsheva Boyd RN * [place] Suicide Severity Rating Scale (Screener/Recent Self-Report) Question Answer Date of Assessment Author 1. Wish to be (Past 1 Month) No 024 6:42 PM EST [place], Batsheva, RN 2. Non-Specific Active Suici radha Thoughts (Past 1 Month) No 10/10/2023 6:42 PM Batsheva Boyd RN 6. Suicidal Behavior (Lifetime) No 6:42 PM Batsheva Boyd RN documented as of this encounter Plan of Treatment Not on file documented as of this encounter Visit Diagnoses Not on filedocumented in this encounter Care Teams Stopper Maker Relationship Specialty Start Date End Date Juany Escobar MD [address] [place] [address] PCP - General Internal Medicine 10/10/23 documented as of this encounter Additional Source Comments The information contained in this document represents components of the legal health record. It is not the complete legal health record.[facility]
--- OUTSIDE RECORDS SUMMARY | 2025-06-19 18:17 | XMS_ITS | Clinical Summary ---
Author Organization [facility] Address [address] [facility] [address] [place] [phone] Phone Care Team Providers Care Life Coach Name Role Phone Juany Escobar MD Primary Care Pro vider Allergies Active Allergy Reactions Criticality Noted Date Comments Codeine Palpitations Low 03/11/2011 Dulaglutide 09/18/2021 Ibuprofen Hives High 09/16/2016 Other reaction(s): face puffy & GI pain Other reaction(s): O/E - lip swelling Losartan Hives Medium 10/23/2020 Other reaction(s): GI Problems Pork Derived (Porcine) 10/10/2023 Medications albuterol 90 mcg/actuation inhaler INHALE 2 PUFFS BY MOUTH FOUR TIMES DAILY NEEDED 2 Active amLODIPine (NORVASC) 5 MG tablet Take 5 mg by mouth every morning. 3 Active aspirin 81 MG EC tablet Take 81 mg by mouth every morning. 3 Active atorvastatin (LIPITOR) 20 MG tablet Take 20 mg by mouth every morning. 3 Active buPROPion (WELLBUTRIN XL) 150 MG ER 24 hr tablet Take 150 mg by mouth every morning. 3 Active cyclobenzaprin e (FLEXERIL) 10 MG tablet TAKE 1 TABLET BY MOUTH THREE TIMES DAILY IN THE MORNING, AT NOON, AND AT BEDTIME NEEDED FOR MUSCLE SPASMS 3 Active FREESTYLE MISAEL 14 DAY SENSOR kit USE DIRECTED 3 TO 4 TIMES DAILY. CHANGE EVERY 14 DAYS 3 Active fluticasone propionate (FLOVENT HFA) 44 mcg/actuation inhaler Inhale 2 puffs into the lungs. 2 Active hydrOXYzine (ATARAX) 25 MG tablet Take 25 mg by mouth every 6 (six) hours as needed. 3 Active LEVEMIR FLEXPEN 100 unit/mL (3 mL) InPn injection pen INJECT 44 UNITS SUBCUTANEOUSLY AT BEDTIME 3 Active HUMALOG KWIKPEN INSULIN 100 unit/mL kwikpen INJECT 13 UNITS SUBCUTANEOUSLY THREE TIMES DAILY BEFORE MEALS DIRECTED 3 Active loratadine (CLARITIN) 10 mg tablet Take 10 mg by mouth every morning. 3 Active metFORMIN (GLUCOPHAGE) 1000 MG tablet TAKE 1 TABLET BY MOUTH TWICE DAILY IN THE MORNING AND IN THE EVENING WITH MEALS 3 Active omega 2-fsl-xzg-fish oil 300 mg (120 mg- 180mg)-1,000 mg Cap TAKE 1 CAPSULE BY MOUTH TWICE DAILY IN THE MORNING AND IN THE EVENING 3 Active spironolactone (ALDACTONE) 25 MG tablet Take 25 mg by mouth every morning. 3 Active Social History Tobacco Use Types Packs/Day Years [...] with a working camera? Not on file Intimate Partner Violence Answer Date R ecorded Are you denied basic needs s uch as food, clothing, or medical care? No 12/21/2023 In the past 12 months have y ou been in a relationship with a person who hurts, threatens, or tries to control you? No 12/21/2023 Are you denied basic needs s uch as food, clothing, or medical care? No 12/21/2023 In the past 12 months have y ou been in a relationship with a person who hurts, threatens, or tries to control you? No 12/21/2023 Sex and Gender Information Value Date Recorded Sex Assigned at Male 10/10/2023 6:43 PM EST Legal Sex Male 9:25 PM EDT Gender Identity Male 10/10/2023 6:43 PM EST Sexual Orientation Straight 12/21/2023 10 :49 AM EDT Last Filed Vital Signs Vital Sign Reading Time Taken Comments Blood Pressure 134/78 12/21/2023 3:41 PM EDT Pulse 79 12/21/2023 3:41 PM EDT Temperature 36.5 C (97.7 F) 12/21/2023 3:41 PM EDT Respiratory Rate 16 12/21/2023 3:41 PM EDT Oxygen Saturation 97% 12/21/2023 3:41 PM EDT Inhaled Oxygen Concentration - - Weight 86.2 kg (190 lb) 10/10/2023 6:41 PM EST Height 172.7 cm (5' 8 ) 10/10/2023 6:41 PM EST Body Mass Index 28.89 10/10/2023 6:41 PM EST Plan of Treatment Health Maintenance Due Date Last Done Comments LIPID PANEL 1977 DEPRESSION SCREENING 1989 SMOKING Hx and SMOKELESS TOBACCO SCREENING 1990 HEPATITIS C SCREENING 12/07/1995 HIV ONE-TIME SCREENING (18-6 5 YEARS) 12/07/1995 COLOGUARD 2022 COLONOSCOPY 2022 COLORECTAL CANCER SCREENING 2022 FIT TEST 2022 FOBT 2022 SIGMOIDOSCOPY 2022 VIRTUAL COLONOSCOPY 2022 CREATININE LEVEL 10/10/2024 10/10/2023, 05/01/2023 POTASSIUM LEVEL 10/10/2024 10/10/2023, 05/01/2023 INFLUENZA VACCINE (#1) 2025 COVID-19 VACCINE ( - 2024-2 6 season) 2025 SCREENING FOR DIABETES 02/09/2026 02/09/2023 Adult Td,Tdap Booster 02/09/2033 02/09/2023 HEPATITIS A VACCINES Aged Out No long er eligible based on patient's age to complete this topic HIB VACCINES Aged Out No longer eligi ble based on patient's age to complete this topic MENINGOCOCCAL VACCINES (ACWY) Aged Out No longer eligible based on patient's age to complete this topic MENINGOCOCCAL VACCINES (B) Aged Out N o longer eligible based on patient's age to complete this topic PNEUMOCOCCAL VACCINES (0-49 years) Aged Out No longer eligible b ased on patient's age to complete this topic Medical Devices Not on file Procedures Procedure Name Priority Date/Time Associated Diagnosis Comments BASIC METABOLIC PANEL STAT 10/10/2023 7:00 PM EST from Last 3 Months or Most Recently Relevant to Health Maintenance Results * (ABNORMAL) Basic metabolic panel (10/10/2023 7:00 PM EST) SODIUM 137 133 - 146 mmol/L [facility] CHLORIDE 99 96 - 108 mmol/L [facility] POTASSIUM 3.9 3.3 - 5.1 mmol/L [facility] Comment:Specimen slightly he molyzed, result may be falsely elevated. CO2 25 21 - 35 mmol/L [facility] BUN 12 6 - 19 mg/dL [facility] CREATININE 1.10 0.5 - 1.5 mg/dL [facility] GLUCOSE 195(H) 70 - 99 mg/dL [facility] CALCIUM 9.6 8.4 - 10.3 mg/dL [facility] EGFR 84 >59 mL/min/1.7 3m2 [facility] Comment:Estimated glomerular filtration rate calculated using the CKD-EPI refit equation. ANION GAP 17 10 - 20 mmol/L [facility] Blood 10/10/2023 7:00 PM EST 10/10/2023 7:04 PM EST us Kye Thorpe DO LAB BLOOD ORDERABLES Final Re sult [facility] [address] [place] [address] from Last 3 Months or Most Recently Relevant to Health Maintenance Insurance [facility] MEDIC[facility] PART A & [facility] [place] [employer] [place] Care Teams Life Coach Relationship Specialty Start Date End Date Juany Escobar MD [address] [place] [id number] PCP - General Internal Medicine 10/10/23 Additional Source Comments The information contained in this document represents components of the legal health record. It is not the complete legal health record.[facility]
--- OUTSIDE RECORDS SUMMARY | 2025-06-19 18:17 | XMS_ITS | Patient Health Record ---
Author Organization [facility] Address [address] [place] [address] Care Team Providers Care Learning Technologies Specialist Name Role Phone Silvestre Varghese Primary Care Provider Sridhar Dickey Unavailable [phone] Allergies Allergen (clinical drug ingredient) Drug/Non Drug Allergy documented on EMR Reaction Allergy Type Onset Date Status Motrin Unknown Drug Allergy Active Reason For Referral No Information Medications Medication SIG (Take, Route, Frequency, Duration) Notes Start Date End Date Status Citalopram & Diet Manage Prod Active Echinacea Goldenseal Plus Active Tony 3 1000 MG Orally Acti ve Vitamin [...] disorder associated with type II diabetes mellitus ([id number]) Type 2 diabetes mellitus with other diabetic neurological complication (E11.49) Active confirmed Plan Of Treatment Pending Test Test Name Order Date [id number] NAIL, 1-5 10/08/2015 [id number] SKIN LESIONS, 2 TO 4 10/08/19 16 [id number] NAIL(S) 10/08/2015 Insurance Providers Payer Name Payer Address Payer Phone Subscriber Number Group Number Insured Name Patient Relationship to Insured Coverage Start Date Coverage End Date Medicare National Govt Svcs Inc [address] [place] [address] [id number] Joe Pabon Self - patient is the insured Medical (General) History Medical History History ICD Code Anxiety asthma Back pain type II diabetes High blood pressure [place] palsy Chicken pox Joint implants/screws Surgical History Surgery Date(Month/Year) back surgery 2005
--- OUTSIDE RECORDS SUMMARY | 2025-06-19 18:17 | XMS_ITS | Encounter Summary ---
Author Organization [facility] Address [address] [facility] [address] [place] [address] Phone Care Team Providers Care Programming Equipment Operator Name Role Phone Juany Escobar MD Primary Care Pro vider Encounter Details Date Type Department Care Team (Late st Contact Info) Description 12/21/2023 Procedure [facility], Ct Scan - [address] [address] Social History Tobacco Use Types Packs/Day Years [...] Date of Assessment Author No Risk Indicated 12/21/2023 10:49 AM EDT Anjali Mi RN * [place]rus Suicide Severity Rating Scale (Screener/Recent Self-Report) Question Answer Date of Assessment Author 1. Wish to be (Past 1 Month) No 024 10:49 AM EDT Anjali Daley RN 2. Non-Specific Active Suici radha Thoughts (Past 1 Month) No 12/21/2023 10:49 AM EDT Cecilio Daley RN 6. Suicidal Behavior (Lifetime) No 10:49 AM EDT Anjali Daley RN documented as of this encounter Plan of Treatment Not on file documented as of this encounter Visit Diagnoses Not on filedocumented in this encounter Care Teams Programming Equipment Operator Relationship Specialty Start Date End Date Juany Escobar MD [address] [place] [id number] PCP - General Internal Medicine 10/10/23 documented as of this encounter Additional Source Comments The information contained in this document represents components of the legal health record. It is not the complete legal health record.[facility]
--- OUTSIDE RECORDS SUMMARY | 2025-06-19 18:17 | XMS_ITS | Clinical Summary ---
Author Organization [facility] Address [address] [place] [phone] Care Team Providers Care Clinical Operations Leader Name Role Phone Unknown Primary Care Provider [...] Cap capsule 1 Active UltiCare Mini Pen [place] 31G X 6 MM Misc 1 Active [...] - 19+ 3-dose series) 1996 Colonoscopy 2022 Influenza Vaccine 04/05/2025 COVID-19 Vaccine (1 - 4-2 5 season) 2025 Pneumococcal Vaccine: Pediat bruce (0-5 Years) and At-Risk Patients (6 to 49 Years) Aged Out No longer eligible b ased on patient's age to complete this topic Insurance [facility] INSURANCE [employer] HMO Care Teams Clinical Operations Leader Relationship Specialty Start Date End Date Unknown Unknow Provider Address PCP - General 10/23/20
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
== END 2025-06-19 15:58 | disposition home or self-care (01) ==
LOC: HO.HUSH 14:34
PROVIDERS: PCP Student in an Organized Health Care Education/Training Program; Visit Provider Urology
DX: R35.1 Nocturia (principal)
CPT/HCPCS: 99203

== ENCOUNTER → 2025-06-19 14:33 | Outpatient (BNVA) | payer OTHER, SELFPAY | PROVIDERS: PCP Student in an Organized Health Care Education/Training Program; Visit Provider Urology | DX: R35.1 Nocturia (principal) | CPT/HCPCS: 51798 ==

== ENCOUNTER 2025-06-28 10:48 | Outpatient (AMB) | payer OTHER, SELFPAY ==
--- NOTE | 2025-06-28 10:49 | MHC.OFFVIS ---
Vital Signs 06/28/25 10:50 Height 5 ft 8 in Weight 201 lb 6 oz BMI 30.6 BP 132/68 Blood Pressure Location Rt brachial Position Sitting Pulse 74 Pulse Source Pulse Oximeter Pulse Oximetry (%) 96 Oxygen Delivery Method Room Air Intake Visit Reasons: follow up Intake Note: Follow up care - sleep disorder Temperature Control Inspector Required: No Accompanied by: Self / Same As Patient Allergies Pork/Porcine Containing Products Allergy (Intermediate, Verified 06/28/25 10:50) hives/rash losartan (Cozaar) Allergy (Unknown, Verified 06/28/25 10:50) Unknown HPI Comments Details: 49 year male presents for an evaluation of LEN. PMH : In 2001 while he was working, he had a back injury, which led to l4/l5 fusion in [facility] with Dr. Waters, he has never been pain free since. [place] Palsy in 2020. HST is pending He now notices snoring loudly and gasps for air, per his . He feels chronically fatigued due to multiple night time arousals. We reviewed sleep hygiene and avoiding blue light emitting devices in the middle of the night, as he likes to watch videos on his phone when he is unable to fall asleep. He goes to bed at 10pm and wakes up at 6am with 3 bathroom breaks. Since he stopped Januvia the nocturia has improved. He has been a diabetic since his adolescence years. He has morning headaches, lasting 1-2 hours and he takes tylenol 2-3x a week then hydrates. Usually begin at the frontal sinuses then migrate to parietal area and back of his neck. He has discomfort with pinching pain, denies photophobia, phonophobia, triggers to smells. Denies floaters, vision changes and scotomas, denies dizziness, vertigo, balance or gait difficulties. He continue to have chronic lumbar pain and is seen at [facility] in [place], along with shots of Arnica at trigger points with hands on therapy. He denies symptoms of RLS. His memory is stable. Mood has improved and now feels less anxious and depressed. He lost his daughter 28year old due to Lupus Jun 13 2023, he is seeing a therapist once a week for grief counseling. He goes to [employer] and has a good social support network. His diet is improved now eating a more rug cleaner diet. FH+ dementia mom 70. PFSH Medical History GERD (gastroesophageal reflux disease) Chronic, continuous use of opioids Dyslipidemia HTN (hypertension) Diabetes mellitus, type II Obesity Asthma Backache Anxiety Depression Pure hypercholesterolemia Surgical History History of back surgery Social History Patient Tobacco Use Status: Never used Tobacco Second Hand Smoke Exposure: No Physical Exam Vital Signs: Last Vital Signs Pulse 74 06/28/25 10:50 BP 132/68 06/28/25 10:50 Pulse Ox 96 06/28/25 10:50 Oxygen Delivery Method Room Air 06/28/25 10:50 BMI result Body Mass Index 30.6 Const General: cooperative, comfortable and no acute distress Nutritional Appearance: average body habitus Orientation/consciousness: patient oriented x3 HEENT Face and sinus: Yes face symmetric Teeth and gingiva: other ([place] score 3) Eyes Pupils: Equal, round and reactive pupils present Neck Neck: Yes full ROM Resp Effort & Inspection: normal respiratory effort and able to speak in complete sentences Neuro General: patient oriented x3 and moves all extremities Cranial nerves: Yes Equal, round and reactive pupils present, Yes Normal accommodation reflex present, Yes Nystagmus not present, Yes Normal facial strength present, Yes Midline tongue present, Yes Ability to bilaterally rotate head present and Yes Ability to bilaterally elevate shoulders present Cognition (Neuro): normal cognition Gait exam (Neuro): Normal gait present Motor exam (neuro): 5/5 motor strength present throughout and Normal motor muscle tone present throughout Psych Appearance: grossly normal Attitude: cooperative Thought process: Normal thought process present Thought content: Normal thought content present Results Reviewed Results Reviewed: HST is pending Labs reviewed with pt, A1c have improved since starting insulin. Assessment & Plan Assessment & Plan (1) Frequent headaches: Code(s): R51.9 - Headache, unspecified Category: Medical (2) Chronic fatigue: Code(s): R53.82 - Chronic fatigue, unspecified Category: Medical (3) Excessive daytime sleepiness: Comment: HST Code(s): G47.19 - Other hypersomnia Category: Medical (4) Nocturia more than twice per night: Comment: urology referral Code(s): R35.1 - Nocturia Category: Medical Plan HST r/o len due to excessive daytime fatigue with snoring and gasping for air. (HST is pending),pt says he was not called. Frequent headaches 2-3 x per week start sumatriptan 50mg po prn headache, may take one additional tablet within 2 hours of first dose if the headache does not abort. Do not exceed more than 100mg po per headache / migraine attack. Drink plenty of water, avoid triggers and wear a migraine cap as needed. Labs reviewed with pt. will review additional labs to monitor r/o anemia and causes for fatigue. Nocturia is improved with change of sglt to insulin asparte and glargine with metformin. Orders: Orders Vitamin D 25-OH Total Today G47.19 - Other hypersomnia Vitamin B12 and Folate Today G47.19 - Other hypersomnia Vitamin B6 Today G47.19 - Other hypersomnia Homocysteine Today G47.19 - Other hypersomnia, G47.9 - Sleep disorder, unspecified, R53.83 - Other fatigue Comprehensive Met. Panel Today G47.19 - Other hypersomnia RT home sleep study 06/28/25 G47.19 - Other hypersomnia Ferritin Today G47.19 - Other hypersomnia TSH reflex Free T4 Today G47.19 - Other hypersomnia Methylmalonic Acid Today G47.19 - Other hypersomnia, G47.9 - Sleep disorder, unspecified, R53.83 - Other fatigue Hemoglobin A1c Today G47.19 - Other hypersomnia Complete Blood Count no Diff Today G47.19 - Other hypersomnia Medications: New sumatriptan succinate 50 mg orally PRN; May take 2 tablets at the onset of headache. If migraine does not abort you may take one more tablet 2 hours later. Not to exceed more than 4 tablet po during migraine attack in a 24 hour period. 14 tabs 1RF migraine headache 2 months MDD 100mg R51.9 - Headache, unspecified Patient Instructions: Sleep Hygiene provided: set a scheduled bedtime and wake time to help regulate the circadian rhythm and balance the release of pituitary hormones. Sleep in a dark room, temperatures below 68 degrees, and no devices n bed. Limit caffeinated products 6 hours prior to bed, and limit fluids 2-4 hours prior to bed. Gentle night yoga, diffusing essential oils, and playing soft music can be relaxing. Coding Level of Care Code Est Pt Level 4 (44247) Diagnoses Frequent headaches R51.9 Chronic fatigue R53.82 Excessive daytime sleepiness G47.19 Nocturia more than twice per night R35.1
[2025-06-28 10:50] VITALS: BP 132/68; PULSE 74; O2SAT 96; BMI 30.6
--- OUTSIDE RECORDS SUMMARY | 2025-06-28 12:34 | XMS_ITS | Encounter Summary ---
Author Organization [facility] Address [address] [facility] [address] [place] [address] Care Team Providers Care Hplc Chemist Name Role Phone Juany Escobar MD Primary Care Pro vider Reason for Visit * Reason Comments Med Refill Encounter Details Date Type Department Care Team (Late st Contact Info) Description 06/24/2025 Refill [facility] [address] [place] [address] Juany Escobar MD [address] [place] [address] Pure hypercholesterolemia Social History Tobacco Use Types Packs/Day Years [...] as of this encounter Visit Diagnoses Diagnosis Pure hypercholesterolemia documented in this encounter Additional Health Concerns Assessment Noted Time PHQ-9 Depression Total Score: 0 12/05/19 25 11:28 AM EDT documented as of this encounter Care Teams Hplc Chemist Relationship Specialty Start Date End Date Juany Escobar MD [address] [place] [id number] PCP - General Internal Medicine 03/25/23 documented as of this encounter
--- OUTSIDE RECORDS SUMMARY | 2025-06-28 12:34 | XMS_ITS | Encounter Summary ---
Author Organization [facility] Address [address] [facility] [address] [place] [address] Care Team Providers Care Candy Decorator Name Role Phone Juany Escobar MD Primary Care Pro vider Reason for Visit * Reason Onset Date Comments Med Refill 03/04/2025 Encounter Details Date Type Department Care Team (Late st Contact Info) Description 03/04/2025 Telephone [facility] [address] [place] [address] Juany Escobar MD [address] [place] [address] Med Refill Social History Tobacco Use Types [...] 25 MG tablet To be sent to: [facility]/pharmacy #[id number] - [place], [place] - [address]. documented in this encounter Plan of Treatment Not on file documented as of this encounter Visit Diagnoses Not on filedocumented in this encounter Additional Health Concerns Assessment Noted Time PHQ-9 Depression Total Score: 0 12/05/19 25 11:28 AM EDT documented as of this encounter Care Teams Candy Decorator Relationship Specialty Start Date End Date Juany Escobar MD [address] [place] [id number] PCP - General Internal Medicine 03/25/23 documented as of this encounter
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
--- OUTSIDE RECORDS SUMMARY | 2025-06-28 12:34 | XMS_ITS | Patient Health Record ---
Author Organization [facility] Address [address] [place] [address] Care Team Providers Care Ent Surgeon Name Role Phone Silvestre Varghese Primary Care Provider Sridhar Dickey Unavailable [phone] Allergies Allergen (clinical drug ingredient) Drug/Non Drug Allergy documented on EMR Reaction Allergy Type Onset Date Status Motrin Unknown Drug Allergy Active Reason For Referral No Information Medications Medication SIG (Take, Route, Frequency, Duration) Notes Start Date End Date Status Citalopram & Diet Manage Prod Active Echinacea Goldenseal Plus Active [place] 3 1000 MG Orally Acti ve Vitamin [...] disorder associated with type II diabetes mellitus ([id number]) Type 2 diabetes mellitus with other diabetic neurological complication (E11.49) Active confirmed Plan Of Treatment Pending Test Test Name Order Date [id number] NAIL, 1-5 10/08/2015 [id number] SKIN LESIONS, 2 TO 4 10/08/19 16 [id number] NAIL(S) 10/08/2015 Insurance Providers Payer Name Payer Address Payer Phone Subscriber Number Group Number Insured Name Patient Relationship to Insured Coverage Start Date Coverage End Date Medicare National Govt Svcs Inc [address] [place] [address] [id number] Joe Pabon Self - patient is the insured Medical (General) History Medical History History ICD Code Anxiety asthma Back pain type II diabetes High blood pressure Smoot palsy Chicken pox Joint implants/screws Surgical History Surgery Date(Month/Year) back surgery 2005
--- OUTSIDE RECORDS SUMMARY | 2025-06-28 12:34 | XMS_ITS | Encounter Summary ---
Author Organization [employer] Address [address] [place] [address] [address] [place] [address] Care Team Providers Care Scratcher Name Role Phone Katya Esteves Primary Care Provider Juany Connors MD Primary Care Pro vider Encounter Details Date Type Department Care Team (Late st Contact Info) Description 08/23/2022 Orders Only [facility] [address] [place] [address] Mayda Carrero LPN Social History Tobacco Use [...] on filedocumented in this encounter Care Teams Scratcher Relationship Specialty Start Date End Date Katya Esteves FNP PCP - General Family Medicine 08/06/21 03/24/23 Juany Escobar MD [address] [place] [address] PCP - General Internal Medicine 03/25/23 documented as of this encounter
--- OUTSIDE RECORDS SUMMARY | 2025-06-28 12:34 | XMS_ITS | Encounter Summary ---
Author Organization [employer] Address [address] [facility] 7t [place] [address] Care Team Providers Care Support Services Coordinator Name Role Phone Juany Escobar MD Primary Care Pro vider Reason for Visit * Reason Comments Med Refill Encounter Details Date Type Department Care Team ([facility] st Contact Info) Description 02/04/2025 Telephone [facility] [address] [place] [address] Della Vivas MD [address] [place] [address] Med Refill Social History Tobacco Use Types [...] encounter Miscellaneous Notes * Telephone Encounter - Kristie Messer RN - 02/08/2025 11:33 AM EDT Called [facility] pharmacy. On 02/06/25 Kanika Marrero, RuthannD sent Novolog Flexpen to [facility] pharmacy for the pt (14 units before breakfast and lunch, 16 units before dinner) with 3 refills. Called pt to notify, no answer, left voicemail. Pt to receive call from pharmacy as well. * Telephone Encounter - Nathalie Ledezma RN - 02/06/2025 9:34 AM EDT Telephone call placed to [facility] regarding below message. They report pt last seen for televisit by their office September of this year. No showed to all other appts so far but is rescheduled. No changes to this medication that they can see in notes. Requested since provider is managing their diabetes meds, if they can take over Fiasp Flexpen that would probably be best to reduce risk of med error. Gave most up to date dosing and frequency in our system. They stated will send message to provider and will call me back by tomorrow at the latest. Gave my direct ext for call back. Please can you check with pt's asian art curator , he was following w endo and I am not sure if doseof insulin changed , please request asian art curator to refill medication to avoid errors , if any issue with them refilling please inform a covering provider in green team to send med after confirming dose documented in this encounter Plan of Treatment Not on file documented as of this encounter Visit Diagnoses Diagnosis Type 2 diabetes mellitus without complication, with long-term current use of insulin (HCC) documented in this encounter Additional Health Concerns Assessment Noted Time PHQ-9 Depression Total Score: 0 12/05/19 25 11:28 AM EDT documented as of this encounter Care Teams Support Services Coordinator Relationship Specialty Start Date End Date Juany Escobar MD [address] [place] [address] PCP - General Internal Medicine 03/25/23 documented as of this encounter
--- OUTSIDE RECORDS SUMMARY | 2025-06-28 12:34 | XMS_ITS | Encounter Summary ---
Author Organization [employer] Address [address] [facility] [address] [place] [address] Care Team Providers Care High Lift Operator Name Role Phone Juany Escobar MD Primary Care Pro vider Reason for Visit * Reason Comments Med Refill Encounter Details Date Type Department Care Team ([facility] st Contact Info) Description 04/22/2023 Telephone [facility] [address] [place] [address] [facility] [address] [place] [address] Med Refill Social History Tobacco Use Types [...] documented as of this encounter Care Teams High Lift Operator Relationship Specialty Start Date End Date Juany Escobar MD [address] [place] [address] PCP - General Internal Medicine 03/25/23 documented as of this encounter
--- OUTSIDE RECORDS SUMMARY | 2025-06-28 12:35 | XMS_ITS | Clinical Summary ---
Author Organization [facility] Address [address] [place] [address] Care Team Providers Care Melt House Centrifugal Operator Name Role Phone Unknown Primary Care [...] Cap capsule 1 Active UltiCare Mini Pen [place] 31G X 6 MM Misc 1 Active [...] patient's age to complete this topic Insurance [facility] INSURANCE [employer] HMO Care Teams Melt House Centrifugal Operator Relationship Specialty Start Date End Date Unknown Unknow Provider Address PCP - General 10/23/20
--- OUTSIDE RECORDS SUMMARY | 2025-06-28 12:35 | XMS_ITS | Clinical Summary ---
Author Organization [facility] Address [address] [place] [address] Care Team Providers Care Communications Intern Name Role Phone Silvestre Varghese [facility] Primary Care Provider Family History Medical [...] Influenza Vaccine (#1) 2025 05/20/2015 Care Teams Communications Intern Relationship Specialty Start Date End Date Silvestre Varghese FNP [address] [place] [address], [address] [place] [address] PCP - General 07/10/19
--- OUTSIDE RECORDS SUMMARY | 2025-06-28 12:35 | XMS_ITS | Encounter Summary ---
Author Organization [employer] Address [address] [facility] 7t [place] [address] Care Team Providers Care Supervisor Title Name Role Phone Juany Escobar MD Primary Care Pro vider Reason for Visit * Reason Comments Med Refill Encounter Details Date Type Department Care Team (Late st Contact Info) Description 09/17/2024 Refill [facility] [address] [place] [address] Juany Escobar MD [address] [place] [address] Social History Tobacco Use Types Packs/Day Years [...] documented as of this encounter Care Teams Supervisor Title Relationship Specialty Start Date End Date Juany Escobar MD [address] [place] [address] PCP - General Internal Medicine 03/25/23 documented as of this encounter
--- OUTSIDE RECORDS SUMMARY | 2025-06-28 12:35 | XMS_ITS | Encounter Summary ---
Author Organization [facility] Address [address] [facility] [address] [place] [address] Phone Care Team Providers Care Sagger Preparer Name Role Phone Juany Escobar MD Primary Care Pro vider Encounter Details Date Type Department Care Team (Late st Contact Info) Description 12/21/2023 Procedure Pass [facility], Ct Scan - [address] [address] Social History Tobacco Use Types Packs/Day Years [...] 10:49 AM EDT Anjali Mi RN * [place] Suicide Severity Rating Scale (Screener/Recent Self-Report) Question [...] on filedocumented in this encounter Care Teams Sagger Preparer Relationship Specialty Start Date End Date Juany Escobar MD [address] [place] [address] PCP - General Internal Medicine 10/10/23 documented as of this encounter Additional Source Comments The information contained in this document represents components of the legal health record. It is not the complete legal health record.[facility]
--- OUTSIDE RECORDS SUMMARY | 2025-06-28 12:35 | XMS_ITS | Encounter Summary ---
Author Organization [facility] Address [address] [place] [address] Phone Care Team Providers Care Ip Technology Transactions Attorney Name Role Phone Juany Escobar MD Primary Care Pro vider Encounter Details Date Type Department Care Team (Late st Contact Info) Description 10/10/2023 Procedure Pass [facility], Ct Scan - [facility] [address] [place] [address] Social History Tobacco Use Types Packs/Day Years [...] 10/10/2023 6:42 PM Batsheva Boyd RN * [place] Suicide Severity Rating Scale (Screener/Recent Self-Report) Question Answer Date of Assessment Author 1. Wish to be (Past 1 Month) No 024 6:42 PM EST [place], Batsheva, RN 2. Non-Specific Active Suici radha Thoughts (Past 1 Month) No 10/10/2023 6:42 PM Batsheva Boyd RN 6. Suicidal Behavior (Lifetime) No 6:42 PM Batsheva Boyd RN documented as of this encounter Plan of Treatment Not on file documented as of this encounter Visit Diagnoses Not on filedocumented in this encounter Care Teams Ip Technology Transactions Attorney Relationship Specialty Start Date End Date Juany Escobar MD [address] [place] [address] PCP - General Internal Medicine 10/10/23 documented as of this encounter Additional Source Comments The information contained in this document represents components of the legal health record. It is not the complete legal health record.[facility]
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
--- OUTSIDE RECORDS SUMMARY | 2025-06-28 12:35 | XMS_ITS | Clinical Summary ---
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 [place] [id number] WADE MD,PHD Blood Venous blood specimen / Unknown 04/02/2025 9:16 AM EDT 04/02/2025 11:06 AM EDT us Juany Gaines MD LAB BLOOD ORDERAB LES Final Result Performing Organization Address City/[facility]/ZIP Co de Phone Number [facility] [address] [place] [phone] * (ABNORMAL) Hemoglobin A1c (04/02/2025 9:16 AM EDT) Hemoglobin A1c 9.1(H) <6.0 % [facility] Comment:Hemoglobin A1C Refer ence Range Adults: 4.8 - 6.0 % Non diabetic: < 6.0 % Goal: < 7.0 %Additional Action Suggested: > 8.0 %Note: Hemoglobin A1c results are invalid for patients with abnormal amounts of HbF. Blood transfusions may impact the HbA1c concentration in the patient sample. Estimated Average Glucose 214 mg/dL [facility] Comment:eAG = Estimated ave rage glucose which is %A1C expressed asaverage glucose, using the formula of the G6Y-MfmdiyzXcadfkk Glucose study (ADAG), Diabetes Care, Vol.31,#8,2007 04/02/2025 9:16 AM EDT 04/02/2025 11:06 AM EDT Generic External Data Provider LAB BLOOD ORDERAB LES Final Result Performing Organization Address [facility]/ZIP Co de Phone Number [facility] [address] [place] [phone] * Ferritin (04/02/2025 9:16 AM EDT) Pathologist [facility] Ferritin 47 20 - 250 ng/mL [facility] 04/02/2025 9:16 AM EDT 04/02/2025 11:17 AM EDT Generic External Data Provider LAB BLOOD ORDERAB LES Final Result Performing Organization Address [facility] Co de Phone Number [facility] [address] [place] [phone] * (ABNORMAL) Lipid Panel, Standard (04/02/2025 9:16 AM EDT) Triglycerides 83 <150 mg/dL [facility] Comment:Desirable Triglyceri de: less than 150 mg/dLBorderline High Triglyceride 150-199 mg/dLHigh Triglyceride: 200-499 mg/dLVery High Triglyceride: greater than or equal to 5OO mg/dL Cholesterol 108 <200 mg/dL [facility] Comment:Desirable Cholestero l: less than 200 mg/dLBorderline High Cholesterol: 200-239 mg/dLHigh Cholesterol: greater than 239 mg/dL LDL Cholesterol Calculated 55 <100 mg/dL [facility] Comment:Desirable LDL: less than 100 mg/dLNear Optimal/Above Optimal LDL: 110- 129 mg/dLBorderline High LDL: 130-159 mg/dLHigh LDL: 160-189 mg/dLVery High LDL: greater than or equal to 190 mg/dL HDL Cholesterol 37(L) >40 mg/dL [facility] Comment:Desirable HDL: great er than 40 mg/dL Note: This HDL assay may give artificially low results in patients with liver disease. Blood Venous blood specimen / Unknown 04/02/2025 9:16 AM EDT 04/02/2025 11:17 AM EDT Juany Gaines MD LAB BLOOD ORDERAB LES Final Result [facility] [address], [place] [phone] * (ABNORMAL) Comprehensive Metabolic Panel (04/02/2025 9:16 AM EDT) Sodium 140 135 - 145 mmol/L [facility] Potassium 4.5 3.3 - 5.1 mmol/L [facility] Chloride 105 96 - 108 mmol/L [facility] Carbon Dioxide 29 22 - 29 mmol/L [facility] Anion Gap 11(L) 12 - 20 [facility] Urea Nitrogen (BUN) 11 9 - 16 mg/dL [facility] Creatinine, Serum 0.98 0.5 - 1.4 mg/dL [facility] Estimated Glomerular Filt Rate >60 [facility] Comment:Chronic Kidney Disea se: Estimated GFR < 60 mL/min/1.44q0Dszpcl Kidney Disease: Estimated GFR < 15 mL/min/1.73m2 Glucose 227(H) 60 - 115 mg/dL [facility] Calcium 9.4 8.4 - 10.2 mg/dL [facility] Bilirubin, Total 0.9 0.0 - 1.0 mg/dL [facility] Aspartate Amino Transferase 22 5 - 37 U/L [facility] Alanine Aminotransferase 26 0 - 40 U/L [facility] Total Protein 7.2 6.5 - 8.0 g/dL [facility] Albumin Level 4.7 3.5 - 5.0 g/dL [facility] Alkaline Phosphatase 91 39 - 117 U/L [facility] Blood Venous blood specimen / Unknown 04/02/2025 9:16 AM EDT 04/02/2025 11:17 AM EDT us Juany Gaines MD LAB BLOOD ORDERAB LES Final Result Performing Organization Address City/State/[facility] Co de Phone Number [facility] [address] [place] [phone] from Last 3 Months Insurance [facility] ST[employer] PPO Care Teams Employee Relations Administrator Relationship Specialty Start Date End Date Juany Escobar MD [address] [place] [address] PCP - General Internal Medicine 03/25/23
--- OUTSIDE RECORDS SUMMARY | 2025-06-28 12:35 | XMS_ITS | Clinical Summary ---
Author Organization [facility] Address [address] [place] [address] Care Team Providers Care Research Project Coordinator Name Role Phone Unavailable Primary Care Provider [...]
--- OUTSIDE RECORDS SUMMARY | 2025-06-28 12:35 | XMS_ITS | Clinical Summary ---
Author Organization [facility] Address [address] [facility] [address] [place] [phone] Phone Care Team Providers Care Hoop Rolls Operator Name Role Phone Juany Escobar MD [...] THE EVENING WITH MEALS 3 Active omega 3-mpz-vsz-fish oil 300 mg (120 mg- 180mg)-1,000 mg [...] EST) SODIUM 137 133 - 146 mmol/L [facility] CHLORIDE 99 96 - 108 mmol/L [facility] POTASSIUM 3.9 3.3 - 5.1 mmol/L [facility] Comment:Specimen slightly he molyzed, result may be falsely elevated. CO2 25 21 - 35 mmol/L [facility] BUN 12 6 - 19 mg/dL [facility] CREATININE 1.10 0.5 - 1.5 mg/dL [facility] GLUCOSE 195(H) 70 - 99 mg/dL [facility] CALCIUM 9.6 8.4 - 10.3 mg/dL [facility] EGFR 84 >59 mL/min/1.7 3m2 [facility] Comment:Estimated glomerular filtration rate calculated using the CKD-EPI refit equation. ANION GAP 17 10 - 20 mmol/L [facility] Blood 10/10/2023 7:00 PM EST 10/10/2023 7:04 PM EST us Kye Thorpe DO LAB BLOOD ORDERABLES Final Re sult [facility] [address] [place] [address] from Last 3 Months or Most Recently Relevant to Health Maintenance Insurance [facility] PART [facility] [place] [employer] Care Teams Hoop Rolls Operator Relationship Specialty Start Date End Date Juany Escobar MD [address] [place] [phone] PCP - General Internal Medicine 10/10/23 Additional Source Comments The information contained in this document represents components of the legal health record. It is not the complete legal health record.[facility]
== END 2025-06-28 11:43 | disposition home or self-care (01) ==
LOC: HO.HSMS 10:49
PROVIDERS: PCP Student in an Organized Health Care Education/Training Program; Visit Provider Physician Assistant Medical
DX: R51.9 Headache, unspecified (principal); R53.82 Chronic fatigue, unspecified; G47.19 Other hypersomnia; R35.1 Nocturia
CPT/HCPCS: 99214

== ENCOUNTER 2025-08-19 09:06 | Outpatient (AMB) | payer OTHER, SELFPAY ==
--- NOTE | 2025-08-19 09:10 | MHC.OFFVIS ---
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: No Accompanied by: Self / Same As Patient Allergies Pork/Porcine Containing Products Allergy (Intermediate, Verified 06/28/25 10:50) hives/rash losartan (Cozaar) Allergy (Unknown, Verified 06/28/25 10:50) Unknown Medication List - Last Reconciled 08/19/25 by Ren Hdz MD albuterol sulfate 90 mcg/actuation 2 puffs inhalation QID PRN alcohol swabs (Alcohol Prep Pads) pad topical QID amlodipine 10 mg PO DAILY atorvastatin 20 mg PO DAILY blood sugar diagnostic (Accu-Chek Guide test strips) As directed blood-glucose sensor (FreeStyle Anthony 3 Plus Sensor device) As directed bupropion HCl XL 300 mg PO DAILY clotrimazole-betamethasone 1-0.05 % appl topical BID flash glucose sensor (FreeStyle Anthony 2 Sensor kit) As directed glucose (TRUEplus Glucose) grams PO insulin aspart U-100 (Novolog FlexPen U-100 Insulin aspart) 10 units subcut insulin glargine-yfgn (Semglee (insulin glargine-yfgn) Pen) 10 units subcut DAILY lancets (Accu-Chek Softclix Lancets) As directed lidocaine-prilocaine 2.5-2.5 % topical DAILY PRN metformin 1,000 mg PO BID omega 9-ypb-srd-fish oil 300 mg (120 mg- 180mg)-1,000 mg 1 cap PO DAILY omeprazole 40 mg PO DAILY spironolactone 25 mg PO DAILY sumatriptan succinate 50 mg orally PRN; May take 2 tablets at the onset of headache. If migraine does not abort you may take one more tablet 2 hours later. Not to exceed more than 4 tablet po during migraine attack in a 24 hour period. 2 months MDD 100mg tizanidine 2 mg PO Q12H PRN HPI Comments Details: Thank you for referring Joe in cardiology consultation today for precordial chest discomfort. Patient is a 49-year-old male with longstanding history of llr-iivumwd-lwsocgpiq diabetes but with poorly controlled diabetes at this point time, hyperlipidemia, hypertension who has been having intermittent episodes of precordial chest discomfort which she describes as sharp pressure usually when he is under stressful situation. He notice that his sugars go up and then he develops chest pressure. Symptoms and last about 5 minutes until he comes down. He denied any symptoms with exertion. He has no other associated symptoms of lightheadedness, syncope. No worsening shortness of breath, orthopnea, PND. He said he is still dealing with the emotional loss of his daughter from 2 years ago. He does get anxiety episodes a lot. [facility] Medical History GERD (gastroesophageal reflux disease) Chronic, continuous use of opioids Dyslipidemia HTN (hypertension) Diabetes mellitus, type II Obesity Asthma Backache Anxiety Depression Pure hypercholesterolemia Surgical History History of back surgery Family History (Updated 08/19/25 @ 09:15 by Falguni Knox [facility]) Mother Heart murmur Maternal Grandfather Heart attack Daughter Lupus (systemic lupus erythematosus) Social History (Updated 08/19/25 @ 09:15 by Falguni Knox CMA) Alcohol intake: never Patient Tobacco Use Status: Never used Tobacco Second Hand Smoke Exposure: No Review of Systems Const Denies chills, Denies fatigue, Denies fever(s), Denies frequent falls, Denies weakness, Denies weight gain and Denies weight loss ENT Denies dizziness Card Reports chest pain, Reports chest pain at rest, Denies leg edema, Denies lightheadedness, Denies palpitations, Denies dyspnea, Denies dyspnea on exertion and Denies orthopnea Resp Denies cough, Denies dyspnea and Denies dyspnea on exertion GI Denies bloating and Denies change in bowel habits Musc Denies muscle weakness, Denies numbness and Denies tingling Neuro Denies dizziness, Denies frequent falls, Denies numbness, Denies tingling and Denies weakness Endo Denies fatigue and Denies palpitations Physical Exam Vital Signs: Last Vital Signs Pulse 81 08/19/25 09:11 BP 150/64 H 08/19/25 09:11 BMI result Body Mass Index 30.0 Const General: cooperative, comfortable, no acute distress, alert, awake and Physically active Nutritional Appearance: average body habitus Orientation/consciousness: patient oriented x3 Limitations: no limitations HEENT Head: Yes normocephalic and Yes atraumatic Neck Neck: Yes trachea midline, Yes supple and Yes no JVD Resp Effort & Inspection: normal respiratory effort Auscultation: clear to auscultation bilaterally Cardio Jugular venous distension: no JVD Rate: regular rate Rhythm: regular rhythm Heart sounds: S1 normal heart sound present, S2 normal heart sound present, no click, no gallops, no murmurs and no rubs GI Auscultation: normal bowel sounds Skin General skin exam: no rashes or lesions noted Neuro General: patient oriented x3 and no focal motor deficits Extrem General: Yes no clubbing, cyanosis or edema Psych Appearance: grossly normal Affect: Anxious affect present Office Procedures EKG Details: EKG shows normal sinus rhythm normal EKGs [id number], Complete Assessment & Plan Assessment & Plan (1) Precordial chest pain: Code(s): R07.2 - Precordial pain Category: Medical Plan: Precordial chest pain under stressful situation in this middle-aged man with significant risk factors for coronary disease including diabetes, hyperlipidemia and hypertension. His diabetes is not under good control and this was discussed with him. This requires more intense modification. His LDL is currently well optimized on current statin dose at 55 mg/dL. Blood pressure is currently well optimized. Need to rule out myocardial ischemia under stressful situations. Suggest a treadmill stress test to evaluate for myocardial ischemia. This will be scheduled in near future. Also will obtain echocardiogram to assess LV systolic and diastolic function to assess for LV wall thickness. Further treatment based on the finding of test results. Continued aggressive risk factor modification. Encouraged to maintain activity level as tolerated. I think he would benefit from treatment of his anxiety and stress levels. Will follow up in the clinic in 6 weeks time after testing. Thank you for allowing me to partake in his care Orders: Orders CA stress test Today R07.2 - Precordial pain CA echo transthoracic complete Today R07.2 - Precordial pain Coding Level of Care Code New Pt Level 4 (82913) Diagnoses Precordial chest pain R07.2 CPT Codes EKG - CPT: 79025-[id number], Complete ([id number])
[2025-08-19 09:11] VITALS: BP 150/64; PULSE 81
== END 2025-08-19 09:32 | disposition home or self-care (01) ==
LOC: HO.HCS 09:07
PROVIDERS: PCP Student in an Organized Health Care Education/Training Program; Visit Provider Internal Medicine Cardiovascular Disease
DX: R07.2 Precordial pain (principal)
CPT/HCPCS: 93010; 99204

== ENCOUNTER → 2025-08-19 09:06 | Outpatient (BNVA) | payer OTHER, SELFPAY | PROVIDERS: PCP Student in an Organized Health Care Education/Training Program; Visit Provider Internal Medicine Cardiovascular Disease | DX: R07.2 Precordial pain (principal); E11.9 Type 2 diabetes mellitus without complications; E78.5 Hyperlipidemia, unspecified; I10 Essential (primary) hypertension; Z79.84 Long term (current) use of oral hypoglycemic drugs; Z79.899 Other long term (current) drug therapy | CPT/HCPCS: 93005 ==